=== PATIENT | male | born 1940 | race Caucasian/White ===

== ENCOUNTER 2017-04-21 11:51 | Observation (INO) | payer OTHER, MEDICARE ==
[~2017-04-21] VITALS: Ht 182.9 cm; Wt 91.2 kg
--- NOTE | ~2017-04-21 | HC ---
[facility] [place] [address] CONSULTATION Name: CORBIN NAVARRO Room #: 543-P HARRY Queen#: [id number] Admission: 04/21/17 Attend Phys: Dhiraj Rowan MD Discharge: 04/23/17 Date of : 41 Report #: [id number] THIS REPORT FOR: //name// CC: Dhiraj Padilla DICTATED BY: Diana NICOLE PATIENT LOCATION: Currently in room 543. REASON FOR CONSULT: Right lower extremity pain, right side. HISTORY OF PRESENT ILLNESS: The patient is a 76-year-old male who denies injury. He states that he had sudden onset of right lower leg pain that became worse as the day progressed. The patient had an ultrasound done in the ER, which was negative for DVT. No previous history of similar symptoms. No previous surgeries in the right lower extremity. He did relay that he had a low grade temp the night before. No other pertinent information was obtained. PERTINENT LABS: White blood cell count of 8.2 and normal, hemoglobin low at 13.8, platelet count of 195, uric acid 5, normal. PERTINENT IMAGING: X-rays ordered once the patient arrived to the floor, demonstrated small joint effusion and medial compartment joint space narrowing. ALLERGIES: PENICILLIN. MEDICATIONS: Please see MAR. PHYSICAL EXAMINATION: EXTREMITIES: Examination of the right lower extremity is as follows. No pain to palpation of the right ankle. Full range of motion to that right ankle. Negative Homans. SKIN: Dry and intact and warm to touch. No pain with full range of motion of the right hip. Tenderness to palpation of the right knee at joint line especially at the medial side, +1 effusion. Range of motion -5 to 90 degrees with pain. No patholaxity noted with assessment. IMPRESSION: Right knee effusion with degenerative joint changes. Right knee pain. PLAN: After the end of the patient's case, we will likely aspirate tomorrow. If the aspiration seems normal, we will inject with steroid. However, if aspiration seems suspicious for infection or gout, we will send to the lab. We will follow up with this patient on ____. [facility] [address] [place] [address] CONSULTATION Name: CORBIN NAVARRO Room #: 543-P [facility] Cher Queen#: [id number] Admission: 04/21/17 Attend Phys: Dhiraj Rowan MD Discharge: 04/23/17 Date of : 41 Report #: [id number] Thank you for your consult. <ELECTRONICALLY SIGNED> By: Zachary Freire MD 04/24/17 1510 2227 0056 Zachary Freire MD /nt
[~2017-04-21 11:51] MED LIST: ADULT LOW DOSE81 MG PO; CARVEDILOL25 MG PO; CIPRO250 M1 PO; COREG PO; COUMADIN 5 MG TA5 M1 PO; HYDROCODON-ACE1 EAC7 PO; JANTOVEN3 MG PO; JANTOVEN5 MG PO; LASIX 80 MG TAB80 M1 PO; LEVOTHROID100 MC1 PO; LISINOPRIL10 MG PO; LISINOPRIL20 MG PO; NORVASC2.5 MG PO; OMEPRAZOLE 20 M20 MG PO; OMEPRAZOLE20 MG PO; PACERONE 200 M200 M1 PO; PERCOCET 5-3251 EACH PO; POTASSIUM20 PO; SIMVASTATIN20 MG PO; SYNTHROID75 MCG PO
[2017-04-21 11:53] VITALS: BP 123/64
[2017-04-21] MEDS ORDERED: ALLOPURINOL 30300 M2 PO (12:24)
[2017-04-21 13:40] LABS: HEMATOCRIT 41.2 % (42.0-52.0); HEMOGLOBIN 13.8 gm/dL (14.0-18.0); MCH 33.7 pg (26.0-34.0); MCHC 33.5 g/dL (28.0-37.0); MCV 100.7 fL (80.0-100.0); PLATELET COUNT 195 thou/uL (150-400); RDW 16.8 % (10.5-14.5); WBC 8.2 thou/uL (4.0-11.0)
[2017-04-21 13:41] LABS: MANUAL DIFF YES
[2017-04-21 13:52] LABS: CALCIUM 8.6 mg/dL (8.5-10.1); POTASSIUM 4.4 mmol/L (3.5-5.1)
[2017-04-21 13:55] LABS: INR 2.8; PROTIME 29.5 Seconds (9.3-11.4)
[2017-04-21 14:05] LABS: ABSOLUTE NEUTROPHILS 7.3 thou/uL (1.4-8.2); TOTAL CELL COUNT 100
[2017-04-21 14:06] LABS: ANISOCYTOSIS 1+; MACROCYTES 1+; POLYCHROMASIA OCCASIONAL
[2017-04-21 14:26] VITALS: BP 118/53
[2017-04-21 20:42] VITALS: BP 104/57
[2017-04-22 03:40] VITALS: BP 103/52
[2017-04-22 06:01] LABS: HEMATOCRIT 39.3 % (42.0-52.0); MCH 33.7 pg (26.0-34.0); MCHC 33.1 g/dL (28.0-37.0); MCV 101.7 fL (80.0-100.0); RBC 3.86 mil/uL (4.50-6.00); RDW 16.3 % (10.5-14.5); WBC 7.7 thou/uL (4.0-11.0)
[2017-04-22 06:31] LABS: INR 3.3; PROTIME 34.1 Seconds (9.3-11.4)
[2017-04-22 06:33] LABS: ALBUMIN 2.8 g/dL (3.4-5.0); CALCIUM 8.5 mg/dL (8.5-10.1); CREATININE 1.1 mg/dL (0.7-1.3); POTASSIUM 4.5 mmol/L (3.5-5.1); TOTAL BILIRUBIN 0.8 mg/dL (<0.1-1.0)
[2017-04-22 08:05] VITALS: BP 112/53
[2017-04-22 08:22] LABS: CLARITY CLOUDY; COLOR YELLOW; TOTAL VOLUME 20 mL
[2017-04-22 08:42] LABS: BF NUCLEATED CELLS 19125; BF RBC 829
[2017-04-22 08:43] LABS: MANUAL DIFF YES
[2017-04-22 11:42] LABS: BF MACROPHAGE 2; BF NEUTROPHILS 96
[2017-04-22 14:55] VITALS: BP 101/50
[2017-04-22 20:10] VITALS: BP 127/51
[2017-04-22 20:38] LABS: BF COMMENTS 0
[2017-04-23 04:10] VITALS: BP 108/56
[2017-04-23 09:06] VITALS: BP 116/57
[2017-04-23] MEDS ORDERED: TRAMADOL 50 MG50 MG PO (11:45)
[2017-04-23 12:10] VITALS: BP 150/68
== END 2017-04-23 13:32 | disposition home or self-care (01) ==
LOC: ER 11:51 → EROBS 13:24 → 5S 13:58
PROVIDERS: Emergency Medicine; Internal Medicine; Orthopaedic Surgery
DX: M79.604 Pain in right leg (principal); I11.0 Hypertensive heart disease with heart failure; I50.9 Heart failure, unspecified; M10.9 Gout, unspecified; K21.9 Gastro-esophageal reflux disease without esophagitis; Z95.0 Presence of cardiac pacemaker; Z95.810 Presence of automatic (implantable) cardiac defibrillator; Z79.82 Long term (current) use of aspirin; Z79.01 Long term (current) use of anticoagulants; Z79.899 Other long term (current) drug therapy; Z88.0 Allergy status to penicillin; I42.9 Cardiomyopathy, unspecified; I48.91 Unspecified atrial fibrillation; Z87.891 Personal history of nicotine dependence; M72.2 Plantar fascial fibromatosis

== ENCOUNTER 2017-05-04 15:49 | Inpatient (IN) | payer OTHER, MEDICARE ==
[~2017-05-04] VITALS: Ht 185.4 cm; Wt 87.8 kg
--- NOTE | ~2017-05-04 | O ---
[facility] [address] [place] [address] OPERATIVE REPORT Name: CORBIN NAVARRO Room #: 537-P [facility] IN M.R.#: [id number] Admission: 05/04/17 Attend Phys: Roderick Redd MD Discharge: Date of : 41 Report #: [id number] THIS REPORT FOR: //name// CC: Roderick Padilla DATE OF SERVICE: 05/06/2017 PREOPERATIVE DIAGNOSIS: Contusion of right leg with hematoma and overlying skin necrosis. POSTOPERATIVE DIAGNOSIS: Contusion of right leg with hematoma and overlying skin necrosis with 6 cm x 9 cm surface wound, 3 cm deep with necrosis of skin and subcutaneous tissue and a large deep subcutaneous hematoma. PROCEDURE PERFORMED: Exam under anesthesia, incision and drainage and evacuation of large right lateral calf hematoma with excisional debridement of necrotic skin and subcutaneous tissue measuring 6 cm x 9 cm x 3 cm deep. HOME SECURITY ALARM INSTALLER: Israel Reynoso M.D. ANESTHESIA: IV sedation, local lidocaine 1% with epinephrine local injection, local Marcaine 0.5% with epinephrine local injection. INDICATION: The patient is a 76-year-old gentleman, who approximately 9 to 10 days ago sustained a contusion to his right leg with development of a hematoma. He was treated in the Emergency Room and released and returned pain in the leg. I did examine for the first time yesterday and he had a raised, tender area of the right lateral calf, which clinically was hematoma under pressure with some overlying skin necrosis. We attempted to get him to surgery yesterday, were unable to due to unavailability in the OR, but he was taken to surgery at this morning for an incision and drainage and evacuation of the hematoma, excision of necrotic skin and subcutaneous tissue. PROCEDURE IN DETAIL: With the patient lying supine with IV sedation, right lower leg was sterilely prepared and draped. There was an area of dark discoloration and necrosis of the skin with blistering in the right lateral calf. It was locally infiltrated with 1% lidocaine with epinephrine. A 15 blade scalpel was used to make an incision at the edge of the necrotic skin circumferentially. Overall size of the wound on the skin was 6.9 cm. Using a sharp 15 blade scalpel, necrotic skin and subcutaneous tissue were excised. A curette was also used to excise necrotic adipose tissue. A large deep hematoma was encountered and this was incised and the hematoma, which was under some pressure was drained. A large amount of dark, old clotted blood and hematoma was evacuated and the wound was irrigated. Pressure of the hematoma was released. No attempt was made to remove all the hematoma, which tracked [address] [address] OPERATIVE REPORT Name: CORBIN NAVARRO Room #: 537-P [facility] IN ..#: [id number] Admission: 05/04/17 Attend Phys: Roderick Redd MD Discharge: Date of : 41 Report #: [id number] circumferentially around the wound several centimeters. Overall, the size of wound was 6.9 cm, which was debrided, 3 cm deep. Hemostasis was complete. There was some red skin bleeding, but no undue bleeding. Wound was packed with a sterile saline gauze and ABD pad and a Kerlix wrap. We will likely employ a wound VAC for this wound in the postoperative period. Note, the patient was given gentamicin and clindamycin intravenously as prophylaxis for his heart valve prior to surgery. By: 1122 2235 Israel Reynoso MD /nt
--- NOTE | ~2017-05-04 | HC ---
[facility] [place] [address] CONSULTATION Name: CORBIN NAVARRO Room #: 537-P [facility]..#: [id number] Admission: 05/04/17 Attend Phys: Roderick Redd MD Discharge: 05/08/17 Date of : 41 Report #: [id number] THIS REPORT FOR: //name// CC: Roderick Padilla DATE OF SERVICE: 05/07/2017 CHIEF COMPLAINT: Surgical wound following evacuation of hematoma of the right lower extremity. HISTORY OF PRESENT ILLNESS: This is a 76-year-old white male patient who was admitted after sustaining an injury to his right lower leg. He was getting out of his car when the wind blew the door closed. He is chronically anticoagulated for a mechanical mitral valve. He developed significant hematoma and some necrosis. He was seen in surgical consultation by Dr. Israel Reynoso who took him to the operating room yesterday and performed an excisional debridement of the area. I have been asked to see him with regard to ongoing wound care. PAST MEDICAL HISTORY: Positive for prosthetic mitral valve, previous cholecystectomy, history of coronary artery bypass graft surgery, previous cardiac arrest, severe cardiomyopathy, permanent atrial fibrillation, pulmonary fibrosis. SOCIAL HISTORY: The patient is a former smoker. He previously worked as a transport truck driver. He has never used recreational drugs. Denies alcohol use. REVIEW OF SYSTEMS: CONSTITUTIONAL: The patient denies fever or chills. HEENT: The patient denies earache, nasal drainage, sore throat. CARDIOVASCULAR: The patient denies chest pain or palpitations, diaphoresis. PULMONARY: The patient denies cough, shortness of breath. GASTROINTESTINAL: The patient denies nausea, abdominal pain. ORTHOPEDIC: The patient does note some pain and drainage from his right leg. Other systems in a 12-point review of systems are negative other than that mentioned in the history of present illness. ALLERGIES: To PENICILLINS. CURRENT MEDICATIONS: Include hydrocodone, tramadol, aspirin, Lasix, Synthroid, simvastatin, omeprazole, lisinopril, amlodipine, carvedilol, Coumadin, allopurinol. PHYSICAL EXAMINATION: VITAL SIGNS: At this time include temperature 97.9, pulse 60, respiration of 18, blood pressure 105/61. [address] [address] CONSULTATION Name: CORBIN NAVARRO Room #: 537-P [facility] IN [facility]#: [id number] Admission: 05/04/17 Attend Phys: Roderick Redd MD Discharge: 05/08/17 Date of : 41 Report #: [id number] GENERAL: This is a chronically ill-appearing male patient appears to be in no distress. HEAD: Normocephalic. NECK: Supple. LUNGS: Clear. HEART: Regular. ABDOMEN: Soft. Bowel sounds present. EXTREMITIES: Demonstrate easily palpable distal pulses. He has 1-2+ edema of the right lower extremity. He has a large surgical wound involving the right lateral lower extremity. Please see the wound care nurse documentation for exact measurements and depth. The base has some hematoma and some granulation tissue. There is still some active oozing, although it is easily controllable with direct pressure. CLINICAL IMPRESSION: 1. Surgical wound to the right lower extremity following evacuation and debridement of a large hematoma. 2. Anticoagulation due to prosthetic mitral valve. 3. Cardiomyopathy. RECOMMENDATION: At this point in time, we recommend saline moist gauze dressings to be changed daily. We will place some Gelfoam on the wound today due to the oozing and then resume with the saline moist gauze dressings followed by Kerlix gauze and an Carlos Manuel wrap to help with compression. At this point in time, I think I would hold off on a wound VAC based on the continued oozing as well as anticoagulation as well as I would be concerned for some impairment of his mobility with this. All questions have been answered. I appreciate being asked to see the patient in consultation. <ELECTRONICALLY SIGNED> By: Kip Beauchamp MD 05/08/17 1804 1128 1607 Kip Beauchamp MD /nt
--- NOTE | ~2017-05-04 | HC ---
[facility] [place] [address] CONSULTATION Name: CORBIN NAVARRO Room #: 537-P [facility] IN ..#: [id number] Admission: 05/04/17 Attend Phys: Roderick Redd MD Discharge: Date of : 41 Report #: [id number] THIS REPORT FOR: //name// CC: Roderick Padilla DATE OF SERVICE: 05/05/2017 WOUND CARE CONSULTATION REPORT DATE OF CONSULTATION: 05/05/2017. REASON FOR CONSULTATION: Contusion of right leg with hematoma. HISTORY OF PRESENT ILLNESS: The patient is a very pleasant 76-year-old gentleman with severe cardiac disease including coronary artery disease, congestive heart failure and with a mechanical mitral valve and an implanted ICD, who around 9 days ago suffered trauma to his right leg when the wind blew the car door into his leg causing him a contusion and a hematoma. He was seen in the emergency department, treated and released with elevation and rest. Of note, the patient was anticoagulated at that time with his INR of 4.4. The patient returned to the emergency department when he had more severe pain of the leg and apparent large hematoma not allowing him to ambulate. The patient was admitted to the hospital with an INR of 2.2. Wound care is consulted for wound management. PAST MEDICAL HISTORY: 1. Coronary artery disease. 2. Congestive heart failure. 3. Mitral valve disease. 4. History of cardiac arrest. 5. History of mitral valve replacement in May 1996. 6. History of constrictive pericarditis. 7. Acid reflux. 8. Severe cardiomyopathy. 9. Atrial fibrillation. 10. Ejection fraction 20% to 25%. SOCIAL HISTORY: The patient does not smoke now or drink. PAST SURGICAL HISTORY: Mitral valve replacement, coronary artery bypass grafting in May 1996, cholecystectomy in 1996, and placement of an ICD. ALLERGIES: PENICILLIN. HOME MEDICATIONS: Include hydrocodone, tramadol, aspirin, and furosemide. [facility] [address] [place] [address] CONSULTATION Name: CORBIN NAVARRO Room #: 537-P [facility] IN [facility]#: [id number] Admission: 05/04/17 Attend Phys: Roderick Redd MD Discharge: Date of : 41 Report #: [id number] patient is on Coumadin daily, simvastatin, omeprazole, lisinopril 10 mg a day, amlodipine, carvedilol 25 mg a day, Coumadin 5 mg a day and allopurinol. PHYSICAL EXAMINATION: GENERAL: An elderly, somewhat chronically ill-appearing gentleman who is pleasant and conversant. VITAL SIGNS: Stable. LUNGS: Respirations are unlabored. Chest is clear. ABDOMEN: Soft. EXTREMITIES: Bruising of his right lower leg including the calf and the foot. In the right lateral calf, there is a 6 x 4.5 cm raised blistered area, and when the skin over the blister is unroofed, there is underlying necrotic skin. This is consistent with contusion with hematoma and pressure necrosis. The patient has good sensation in the foot. Mobile toes. Palpable dorsalis pedis pulse. ASSESSMENT: Contusion with hematoma of the right leg in a patient who is anticoagulated, currently INR of 2.4, and PT of 24.8. Due to pressure necrosis of the hematoma in his right calf, he would benefit from surgical decompression of this with removal of the necrotic skin and subcutaneous tissue and release of the hematoma to relieve the pressure. There is no evidence of compartment syndrome. It is a localized process. Cellulitis is minimal. The patient must remain anticoagulated. PLAN: We will prepare the patient for surgery with surgical excision of necrotic skin and subcutaneous tissue, release of the hematoma. I feel this can be done with the patient anticoagulated since he must remain anticoagulated due to his heart valve. Operating rooms at [facility] due to cardiac surgery are occupied the entire day, and although we wish to get the surgery done today, I feel the situation is stable, and it will be unsafe to take this patient with his severe cardiac disease to the operating room later in the evening. Therefore, we will plan for surgery early in the day on 05/06/2017. We will order topical morphine, Silvadene compound, and plan for surgery tomorrow. By: 1730 0120 Israel Reynoso MD /nt
--- NOTE | ~2017-05-04 | S ---
[facility] [place] [address] SURGICAL PATH RPT PROCEDURE Name: ADAN NAVARRO Room #: 537-P DIS IN M.R.#: [id number] Admission: 05/04/17 Date of : 41 Discharge: 05/08/17 Report #: [id number] Path Case #: [id number] PATHOLOGY REPORT COLLECTION DATE: 05/06/2017 RECEIVED DATE: 05/07/2017 SUBMITTING PHYS: Dr. Israel Reynoso OTHER PHYS: Dr. Geovanni Redd SPECIMEN(S) RECEIVED: A.Necrotic subcutaneous tissue right leg * * * * * * * * * * * * FINAL DIAGNOSIS: Necrotic subcutaneous tissue right leg, debridement: - Fresh hemorrhage within subcutaneous tissue, consistent with hematoma. - Fibrinoid necrosis involving subcutaneous tissue. - Overlying squamous epithelium showing reactive changes. (IUV:mgr; d/t: 05/08/17) PATHOLOGIST: Chel Rodriguez M.D. REPORT ELECTRONICALLY SIGNED BY: Chel Rodriguez M.D. DATE/TIME: 05/08/2017 17:27 * * * * * * * * * * * * GROSS PATHOLOGY: The specimen is received in formalin labeled "Adan Navarro necrotic subcutaneous tissue right leg". Received is a moderate amount of blood coagulum admixed with dusky vitale-lr brown, necrotic-appearing soft tissue admixed with possible skin measuring 8.0 x 4.8 x 2.2 cm in aggregate dimensions. The specimen is submitted representatively in cassette A1. (CAA; 05/07/2017) CLINICAL HISTORY: Hematoma right leg INITIAL CPT CODE(S): A; 42306 Professional services performed by [facility] at [facility] [address], [place] [address] [facility] [address] [address] SURGICAL PATH RPT PROCEDURE Name: AADN NAVARRO Room #: 537-P DIS IN M.R.#: [id number] Admission: 05/04/17 Date of : 41 Discharge: 05/08/17 Report #: [id number] Path Case #: [id number] Technical services performed by [facility] at [address] [place] [address], [place] [address]. [facility] [address] [place] [address] PHONE: [phone] DIRECTOR: Markell Viera M.D. * * * END OF REPORT * * *
[~2017-05-04 15:49] MED LIST changes: +ALLOPURINOL 30300 M2 PO; +NORCO 5-325 TA1 EACH PO; +TRAMADOL 50 MG50 MG PO
[2017-05-04 15:54] VITALS: BP 101/59
[2017-05-04 17:07] LABS: HEMATOCRIT 41.9 % (42.0-52.0); HEMOGLOBIN 13.8 gm/dL (14.0-18.0); MCH 33.4 pg (26.0-34.0); MCV 101.4 fL (80.0-100.0); PLATELET COUNT 267 thou/uL (150-400); RBC 4.14 mil/uL (4.50-6.00); RDW 16.4 % (10.5-14.5); WBC 13.6 thou/uL (4.0-11.0)
[2017-05-04 17:10] LABS: MANUAL DIFF YES
[2017-05-04 17:18] LABS: CALCIUM 8.7 mg/dL (8.5-10.1); CREATININE 1.4 mg/dL (0.7-1.3); INR 2.2; POTASSIUM 5.2 mmol/L (3.5-5.1); PROTIME 22.9 Seconds (9.3-11.4)
[2017-05-04 17:23] LABS: ALBUMIN 3.4 g/dL (3.4-5.0); TOTAL BILIRUBIN 0.7 mg/dL (<0.1-1.0); TOTAL PROTEIN 6.6 g/dL (6.4-8.2)
[2017-05-04 17:29] LABS: ABSOLUTE NEUTROPHILS 11.2 thou/uL (1.4-8.2); ANISOCYTOSIS 1+; TOTAL CELL COUNT 100
[2017-05-04 18:58] VITALS: BP 118/69
[2017-05-04 19:31] VITALS: BP 97/46
[2017-05-04 23:34] VITALS: BP 109/63
[2017-05-05] MEDS ORDERED: METAMUCIL1 EAC1 PO (00:18)
[2017-05-05 03:54] LABS: CALCIUM 8.1 mg/dL (8.5-10.1); CREATININE 1.1 mg/dL (0.7-1.3); POTASSIUM 4.6 mmol/L (3.5-5.1)
[2017-05-05 04:02] VITALS: BP 111/58
[2017-05-05 04:11] LABS: HEMATOCRIT 36.8 % (42.0-52.0); HEMOGLOBIN 12.3 gm/dL (14.0-18.0); MCHC 33.4 g/dL (28.0-37.0); MCV 101.8 fL (80.0-100.0); RBC 3.62 mil/uL (4.50-6.00); RDW 16.7 % (10.5-14.5); WBC 9.6 thou/uL (4.0-11.0)
[2017-05-05 07:27] VITALS: BP 112/70
[2017-05-05 09:50] LABS: INR 2.4; PROTIME 24.8 Seconds (9.3-11.4)
[2017-05-05 15:12] VITALS: BP 117/51
[2017-05-05 19:43] VITALS: BP 93/54
[2017-05-06] VITALS (9 sets, daily range): BP systolic 93–123; BP diastolic 49–56
[2017-05-06 06:23] LABS: HEMATOCRIT 38.1 % (42.0-52.0); HEMOGLOBIN 12.5 gm/dL (14.0-18.0); MCH 34.1 pg (26.0-34.0); MCHC 32.9 g/dL (28.0-37.0); MCV 103.6 fL (80.0-100.0); RBC 3.68 mil/uL (4.50-6.00); RDW 16.5 % (10.5-14.5); WBC 9.8 thou/uL (4.0-11.0)
[2017-05-06 06:33] LABS: CALCIUM 8.4 mg/dL (8.5-10.1); CREATININE 0.9 mg/dL (0.7-1.3); POTASSIUM 5.1 mmol/L (3.5-5.1)
[2017-05-06 06:42] LABS: INR 2.4; PROTIME 24.9 Seconds (9.3-11.4)
[2017-05-07 00:30] VITALS: BP 104/59
[2017-05-07 00:33] VITALS: BP 112/56
[2017-05-07 04:09] LABS: INR 2.4; PROTIME 25.3 Seconds (9.3-11.4)
[2017-05-07 04:19] LABS: HEMATOCRIT 38.8 % (42.0-52.0); HEMOGLOBIN 13.2 gm/dL (14.0-18.0); MCH 34.5 pg (26.0-34.0); MCV 101.6 fL (80.0-100.0); RBC 3.82 mil/uL (4.50-6.00); RDW 16.8 % (10.5-14.5)
[2017-05-07 05:34] LABS: CALCIUM 8.5 mg/dL (8.5-10.1); CREATININE 0.9 mg/dL (0.7-1.3); POTASSIUM 5.4 mmol/L (3.5-5.1)
[2017-05-07 07:25] VITALS: BP 105/61
[2017-05-07 11:51] LABS: URINE BILIRUBIN NEGATIVE (Negative); URINE BLOOD NEGATIVE (Negative); URINE COLOR YELLOW; URINE GLUCOSE-RANDOM* NEGATIVE (Negative); URINE KETONES NEGATIVE (Negative); URINE NITRITE NEGATIVE (Negative); URINE PROTEIN (DIPSTICK) TRACE (Negative)
[2017-05-07 15:30] VITALS: BP 104/51
[2017-05-07 20:00] VITALS: BP 121/56
[2017-05-08 03:49] VITALS: BP 111/57
[2017-05-08 04:06] LABS: HEMATOCRIT 38.6 % (42.0-52.0); MCH 34.4 pg (26.0-34.0); MCHC 33.7 g/dL (28.0-37.0); MCV 101.9 fL (80.0-100.0); RBC 3.79 mil/uL (4.50-6.00); RDW 16.5 % (10.5-14.5); WBC 7.9 thou/uL (4.0-11.0)
[2017-05-08 04:10] LABS: CALCIUM 8.7 mg/dL (8.5-10.1); CREATININE 0.9 mg/dL (0.7-1.3); POTASSIUM 5.3 mmol/L (3.5-5.1)
[2017-05-08 04:15] LABS: INR 2.4; PROTIME 24.9 Seconds (9.3-11.4)
[2017-05-08 07:40] VITALS: BP 111/59
[2017-05-08] MEDS ORDERED: COUMADIN 2.5MG2.5 M1 PO (14:22)
[2017-05-08] MEDS ORDERED: LASIX 40 MG TAB40 M2 PO (14:22)
[2017-05-08 14:57] VITALS: BP 111/59
[2017-05-08] MEDS ORDERED: PERCOCET PO (16:25)
[2017-05-08 19:37] VITALS: BP 111/59
== END 2017-05-08 16:10 | disposition home health service (06) | DRG 570 ==
LOC: ER 15:49 → EROBS 17:37 → 5S 17:37
PROVIDERS: Emergency Medicine; Hospitalist
PROC: 0JBN0ZZ Excision of Right Lower Leg Subcutaneous Tissue and Fascia, Open Approach (ICD-10-PCS; principal; 2017-05-06)
PROC: 0JCN0ZZ Extirpation of Matter from Right Lower Leg Subcutaneous Tissue and Fascia, Open Approach (ICD-10-PCS; principal; 2017-05-06)
DX: S80.11XA Contusion of right lower leg, initial encounter (principal); N17.0 Acute kidney failure with tubular necrosis; I50.20 Unspecified systolic (congestive) heart failure; I42.9 Cardiomyopathy, unspecified; K21.9 Gastro-esophageal reflux disease without esophagitis; Z96.89 Presence of other specified functional implants; E03.9 Hypothyroidism, unspecified; I11.0 Hypertensive heart disease with heart failure; I48.2 Chronic atrial fibrillation; I05.9 Rheumatic mitral valve disease, unspecified; I25.10 Atherosclerotic heart disease of native coronary artery without angina pectoris; Z95.2 Presence of prosthetic heart valve; Z79.82 Long term (current) use of aspirin; Z79.899 Other long term (current) drug therapy; Z79.01 Long term (current) use of anticoagulants; Z88.0 Allergy status to penicillin; Z86.74 Personal history of sudden cardiac arrest; Z87.891 Personal history of nicotine dependence; Z95.1 Presence of aortocoronary bypass graft; Z90.49 Acquired absence of other specified parts of digestive tract; Z95.810 Presence of automatic (implantable) cardiac defibrillator; X58.XXXA Exposure to other specified factors, initial encounter; Y93.89 Activity, other specified; Y92.89 Other specified places as the place of occurrence of the external cause; Y99.8 Other external cause status
CPT/HCPCS: 10086; 50010; 50101; 50386; 51636; 62110; 62850; 70005

== ENCOUNTER → 2017-05-15 | Outpatient (CLI) | payer OTHER, MEDICARE ==
[~2017-05-15] MED LIST changes: +COUMADIN 2.5MG2.5 M1 PO; +LASIX 40 MG TAB40 M2 PO; +METAMUCIL1 EAC1 PO; +PERCOCET PO
== END ==
LOC: HYPER 07:05
DX: S81.801A Unspecified open wound, right lower leg, initial encounter (principal); I10 Essential (primary) hypertension; I25.10 Atherosclerotic heart disease of native coronary artery without angina pectoris; I11.0 Hypertensive heart disease with heart failure; I50.9 Heart failure, unspecified; E03.9 Hypothyroidism, unspecified; I48.91 Unspecified atrial fibrillation; Z79.01 Long term (current) use of anticoagulants; Z87.891 Personal history of nicotine dependence; Z72.89 Other problems related to lifestyle; Z95.1 Presence of aortocoronary bypass graft; X58.XXXA Exposure to other specified factors, initial encounter; Y93.89 Activity, other specified; Y92.89 Other specified places as the place of occurrence of the external cause; Y99.8 Other external cause status

== ENCOUNTER 2017-05-18 11:57 | Inpatient (IN) | payer OTHER, MEDICARE ==
[~2017-05-18] VITALS: Ht 182.9 cm; Wt 88.0 kg
--- NOTE | ~2017-05-18 | HC ---
[facility] [place] [address] CONSULTATION Name: CORBIN NAVARRO Room #: 308-P [facility] IN ..#: [id number] Admission: 05/18/17 Attend Phys: Roderick Redd MD Discharge: Date of : 41 Report #: [id number] THIS REPORT FOR: //name// CC: Roderick Galarza Valerie Ramón Pattersonhens DATE OF SERVICE: 05/18/2017 INFECTIOUS DISEASE CONSULTATION DATE OF ADMISSION: 05/18/2017 DATE OF CONSULTATION: 05/18/2017 ATTENDING PHYSICIAN: Dr. Roderick Redd. REASON FOR EVALUATION: Right lower extremity skin and soft tissue infection/infected hematoma. HISTORY OF PRESENT ILLNESS: Chart reviewed, patient examined. This is a 76-year-old with history of injury sustained via a car door striking his leg. He was on anticoagulation, developed a large hematoma, did undergo additional debridement, had some wound care, had persistence with localizing signs of intensive pain, swelling, redness, underwent evacuation of the hematoma today after being evaluated by the wound care center referred directly, had a previous culture from the site with polymicrobial growth including enterobacter as well as enterococcus. Susceptibilities available for the former is resistant to regeneration cephalosporins as well as amoxicillin and clavulanic acid. He has been placed on levofloxacin. He is not overtly toxic. Denies systemic illness. ALLERGIES: PENICILLINS, he describes last exposure 50 years ago. CURRENT MEDICATIONS: Include hydrocodone, tramadol, oxycodone, warfarin, Levaquin. PAST MEDICAL HISTORY: Includes cardiomyopathy with history of congestive heart failure, has a pacemaker, atrial fibrillation on anticoagulation, has pulmonary fibrosis, mitral valve replacement. SOCIAL HISTORY: Nonsmoker, although he did smoke previously, no ethanol. FAMILY HISTORY: Noncontributory. REVIEW OF SYSTEMS: As above. [facility] [address] [place] [address] CONSULTATION Name: CORBIN NAVARRO Room #: 308-P [facility] IN [facility]#: [id number] Admission: 05/18/17 Attend Phys: Roderick Redd MD Discharge: Date of : 41 Report #: [id number] PHYSICAL EXAMINATION: GENERAL: Pleasant, alert, cooperative, appears somewhat chronically ill, mildly undernourished. VITAL SIGNS: Otherwise stable. HEENT: Unremarkable. LUNGS: Diminished breath sounds. HEART: Irregular. I do not appreciate a murmur. ABDOMEN: Soft, nontender. There is a compression dressing over the distal right lower extremity below the knee, the drain is in place. GENITOURINARY: Deferred. RECTAL: Deferred. LABORATORY DATA: Electrolytes: Sodium 138, potassium 4, chloride 104, bicarbonate is 27, BUN and creatinine of 23 and 0.9, AST of 30, ALT of 30. Albumin of 2.7, total protein of 5.9, prealbumin 11.1. CBC: White count 7.7, H and H 13.3 and 39.3, platelets of 230. ASSESSMENT AND PLAN: Infected hematoma with recent culture with polymicrobial growth; he is postoperative, certainly that was necessary. We will continue antimicrobial therapy due to the PENICILLIN allergies to avoid that group which would be perhaps amenable to monotherapy. We will add vancomycin and see how he does clinically. There was some discussion about possible desensitization, may be worthwhile going forward certainly with his anticoagulation being lifelong, antibiotics are often problematic. I discussed with the patient and his family. By: 1624 2114 Davon Marte MD /nt
[2017-05-18 13:52] LABS: HEMATOCRIT 39.6 % (42.0-52.0); HEMOGLOBIN 13.3 gm/dL (14.0-18.0); MCH 34.3 pg (26.0-34.0); MCHC 33.6 g/dL (28.0-37.0); RBC 3.88 mil/uL (4.50-6.00); RDW 16.7 % (10.5-14.5); WBC 7.7 thou/uL (4.0-11.0)
[2017-05-18 14:06] LABS: INR 1.7; PROTIME 17.9 Seconds (9.3-11.4)
[2017-05-18 14:08] LABS: ALBUMIN 2.7 g/dL (3.4-5.0); CALCIUM 8.9 mg/dL (8.5-10.1); CREATININE 0.9 mg/dL (0.7-1.3); TOTAL PROTEIN 5.9 g/dL (6.4-8.2)
[2017-05-18 14:20] LABS: POTASSIUM 4.8 mmol/L (3.5-5.1)
[2017-05-18 17:53] VITALS: BP 93/45
[2017-05-18 19:05] VITALS: BP 83/48
[2017-05-18 23:39] VITALS: BP 94/54
[2017-05-19 04:20] VITALS: BP 105/61
[2017-05-19 08:17] VITALS: BP 97/49
[2017-05-19 11:58] LABS: ABSOLUTE NEUTROPHILS 4.1 thou/uL (1.4-8.2); BASOPHILS 0.7 % (0.0-2.0); EOSINOPHILS 4.4 % (0.0-3.0); HEMATOCRIT 39.2 % (42.0-52.0); HEMOGLOBIN 13.2 gm/dL (14.0-18.0); LYMPHOCYTES 15.6 % (24.0-44.0); MANUAL DIFF NO; MCH 34.3 pg (26.0-34.0); MCHC 33.7 g/dL (28.0-37.0); MONOCYTES 11.5 % (1.0-8.0); PLATELET COUNT 228 thou/uL (150-400); POLYS 67.8 % (36.0-66.0); RBC 3.85 mil/uL (4.50-6.00); RDW 16.5 % (10.5-14.5)
[2017-05-19 12:07] LABS: INR 2.1; PROTIME 21.9 Seconds (9.3-11.4)
[2017-05-19 18:15] VITALS: BP 88/51
[2017-05-19 20:20] VITALS: BP 96/58
[2017-05-20 04:10] VITALS: BP 116/60
[2017-05-20 06:12] LABS: PROTIME 30.8 Seconds (9.3-11.4)
[2017-05-20 06:46] LABS: FOLIC ACID 12.8 ng/mL (8.6-58.9); TSH 1.167 uIU/mL (0.358-3.740)
[2017-05-20 08:00] VITALS: BP 111/60
[2017-05-20 16:00] VITALS: BP 110/73
[2017-05-20 20:00] VITALS: BP 92/56
[2017-05-21 03:11] LABS: INR 4.3; PROTIME 44.3 Seconds (9.3-11.4)
[2017-05-21 03:35] LABS: HEMATOCRIT 37.3 % (42.0-52.0); HEMOGLOBIN 12.5 gm/dL (14.0-18.0); MCH 34.5 pg (26.0-34.0); MCHC 33.4 g/dL (28.0-37.0); MCV 103.1 fL (80.0-100.0); RBC 3.62 mil/uL (4.50-6.00); RDW 16.7 % (10.5-14.5); WBC 5.3 thou/uL (4.0-11.0)
[2017-05-21 03:37] LABS: MAGNESIUM 1.6 mg/dL (1.8-2.4); POTASSIUM 4.4 mmol/L (3.5-5.1)
[2017-05-21 04:00] VITALS: BP 109/55
[2017-05-21 08:40] VITALS: BP 103/57
[2017-05-21 16:32] VITALS: BP 93/57
[2017-05-21 19:42] VITALS: BP 93/80
[2017-05-22 04:15] LABS: PROTIME 47.9 Seconds (9.3-11.4)
[2017-05-22 04:18] LABS: INR 4.6
[2017-05-22 04:25] VITALS: BP 99/53
[2017-05-22 08:26] VITALS: BP 104/54
[2017-05-22 15:20] VITALS: BP 95/56
[2017-05-22] MEDS ORDERED: LEVAQUIN 500 M500 M2 PO (16:41)
[2017-05-22] MEDS ORDERED: HYDROCODON-ACE1 EAC7 PO (17:02)
[2017-05-22 17:22] VITALS: BP 104/54
[2017-05-22 18:27] VITALS: BP 104/54
== END 2017-05-22 18:28 | disposition home or self-care (01) | DRG 602 ==
LOC: 3N 11:57
PROVIDERS: Emergency Medicine; Hospitalist; Internal Medicine Infectious Disease; Nurse Practitioner Family
DX: L03.115 Cellulitis of right lower limb (principal); E43 Unspecified severe protein-calorie malnutrition; I42.9 Cardiomyopathy, unspecified; I50.20 Unspecified systolic (congestive) heart failure; S80.11XA Contusion of right lower leg, initial encounter; Z96.89 Presence of other specified functional implants; E78.5 Hyperlipidemia, unspecified; E03.9 Hypothyroidism, unspecified; I11.0 Hypertensive heart disease with heart failure; I25.10 Atherosclerotic heart disease of native coronary artery without angina pectoris; K21.9 Gastro-esophageal reflux disease without esophagitis; I48.2 Chronic atrial fibrillation; Z87.891 Personal history of nicotine dependence; Z88.0 Allergy status to penicillin; Z79.01 Long term (current) use of anticoagulants; Z95.2 Presence of prosthetic heart valve; X58.XXXA Exposure to other specified factors, initial encounter; Y93.89 Activity, other specified; Y92.89 Other specified places as the place of occurrence of the external cause; Y99.8 Other external cause status; Z68.26 Body mass index [BMI] 26.0-26.9, adult; Z88.1 Allergy status to other antibiotic agents; Z79.82 Long term (current) use of aspirin; Z79.899 Other long term (current) drug therapy
CPT/HCPCS: 10795

== ENCOUNTER → 2017-05-18 | Outpatient (CLI) | payer OTHER, MEDICARE | LOC: HYPER 07:51 | DX: S81.801D Unspecified open wound, right lower leg, subsequent encounter (principal); I25.10 Atherosclerotic heart disease of native coronary artery without angina pectoris; I11.0 Hypertensive heart disease with heart failure; I50.9 Heart failure, unspecified; E03.9 Hypothyroidism, unspecified; I48.91 Unspecified atrial fibrillation; J84.10 Pulmonary fibrosis, unspecified; Z87.891 Personal history of nicotine dependence; Z72.89 Other problems related to lifestyle; Z95.1 Presence of aortocoronary bypass graft; Z79.01 Long term (current) use of anticoagulants; X58.XXXD Exposure to other specified factors, subsequent encounter ==

== ENCOUNTER → 2017-05-30 | Outpatient (CLI) | payer OTHER, MEDICARE ==
[~2017-05-30] MED LIST changes: +LEVAQUIN 500 M500 M2 PO; +MEDROL DOSPAK21 TA1 PO
== END ==
LOC: HYPER 07:00
DX: S81.801D Unspecified open wound, right lower leg, subsequent encounter (principal); I25.10 Atherosclerotic heart disease of native coronary artery without angina pectoris; I11.0 Hypertensive heart disease with heart failure; I50.9 Heart failure, unspecified; E03.9 Hypothyroidism, unspecified; I25.2 Old myocardial infarction; I48.91 Unspecified atrial fibrillation; Z86.711 Personal history of pulmonary embolism; Z87.891 Personal history of nicotine dependence; Z72.89 Other problems related to lifestyle; Z95.1 Presence of aortocoronary bypass graft; Z79.01 Long term (current) use of anticoagulants; X58.XXXD Exposure to other specified factors, subsequent encounter

== ENCOUNTER 2017-06-03 11:12 | Inpatient (IN) | payer OTHER, MEDICARE ==
[~2017-06-03] VITALS: Ht 182.9 cm; Wt 83.9 kg
--- NOTE | ~2017-06-03 | EKG ---
[address] [place] [address] ELECTROCARDIOGRAM REPORT Name: CORBIN NAVARRO Room #: 447-P ADM IN M.R.#: [id number] Admission: 06/03/17 Attend Phys: Juan Becerril DO Discharge: Date of : 41 Report #: [id number] THIS REPORT FOR: //name// [facility] ED Test Date: 2017-06-03 Test Time: 11:24:21 Pat Name: CORBIN NAVARRO Department: Room: [facility] Gender: M Supervisor [employer]: CALLY : 1940 Requested By: Jefferson Sims Order Number: [id number] MD: Uriel Nix Measurements Intervals [place] Rate: 60 P: 0 VT: 56 QRS: -89 QRSD: 146 T: 47 QT: 492 QTc: 492 Interpretive Statements Ventricular-paced complexes No further analysis attempted due to paced rhythm Baseline wander in lead(s) V3 Compared to ECG 05/03/2013 11:15:25 Ventricular premature complex(es) no longer present Electronically Signed On 06-04-2017 9:23:40 CDT by Uriel Nix [email or web address] <ELECTRONICALLY SIGNED> By: Uriel Nix MD, [facility] 06/04/17 0923 1124 1124 Uriel Nix MD, [facility] /EPI
[~2017-06-03 11:12] MED LIST changes: -MEDROL DOSPAK21 TA1 PO
[2017-06-03 11:40] VITALS: BP 114/54
[2017-06-03 11:45] LABS: HEMATOCRIT 36.7 % (42.0-52.0); HEMOGLOBIN 12.3 gm/dL (14.0-18.0); MANUAL DIFF YES; MCH 33.9 pg (26.0-34.0); MCHC 33.5 g/dL (28.0-37.0); MCV 101.4 fL (80.0-100.0); PLATELET COUNT 209 thou/uL (150-400); RBC 3.62 mil/uL (4.50-6.00); RDW 15.9 % (10.5-14.5); WBC 10.4 thou/uL (4.0-11.0)
[2017-06-03 11:53] LABS: ANION GAP 6 mmol/L (7-16); BUN 20 mg/dL (7-18); CALCIUM 8.2 mg/dL (8.5-10.1); CHLORIDE 104 mmol/L (98-107); CO2 27 mmol/L (21-32); GLUCOSE 102 mg/dL (74-106); SODIUM 137 mmol/L (136-145)
[2017-06-03 12:01] LABS: TROPONIN-I < 0.04 ng/mL (<0.04-0.07)
[2017-06-03 12:05] LABS: ABSOLUTE NEUTROPHILS 8.3 thou/uL (1.4-8.2); PLATELET ESTIMATE NORMAL; TOTAL CELL COUNT 100
[2017-06-03 12:16] LABS: APTT 44.3 Seconds (24.5-32.8); INR 2.8; PROTIME 28.9 Seconds (9.3-11.4)
[2017-06-03 12:46] LABS: URINE BILIRUBIN NEGATIVE (Negative); URINE BLOOD NEGATIVE (Negative); URINE COLOR YELLOW; URINE GLUCOSE-RANDOM* NEGATIVE (Negative); URINE KETONES NEGATIVE (Negative); URINE LEUKOCYTES-REFLEX 1+ (Negative); URINE PROTEIN (DIPSTICK) NEGATIVE (Negative)
[2017-06-03 12:55] LABS: CASTS None Seen /LPF (None Seen); CRYSTALS None Seen /LPF (None Seen); SQUAMOUS 0-3 Few /LPF (0-3); URINE RBC None Seen /HPF (0-2); URINE WBC-REFLEX 6-15 Few /HPF (0-5)
[2017-06-03 14:54] VITALS: BP 102/70
[2017-06-03 15:10] VITALS: BP 89/46
[2017-06-03 17:05] VITALS: BP 90/50
[2017-06-03 18:29] VITALS: BP 84/42
[2017-06-03 20:03] VITALS: BP 90/46
[2017-06-03 20:08] LABS: CLARITY CLOUDY; COLOR YELLOW; TOTAL VOLUME 50 mL
[2017-06-03 20:19] LABS: BF NUCLEATED CELLS 21561; BF RBC 4762
[2017-06-03 20:27] LABS: MANUAL DIFF YES
[2017-06-03 21:18] LABS: BF MACROPHAGE 5; BF NEUTROPHILS 92
[2017-06-04 03:45] VITALS: BP 111/56
[2017-06-04 05:03] LABS: HEMATOCRIT 33.7 % (42.0-52.0); HEMOGLOBIN 11.4 gm/dL (14.0-18.0); MCH 34.2 pg (26.0-34.0); MCHC 33.8 g/dL (28.0-37.0); MCV 101.2 fL (80.0-100.0); PLATELET COUNT 206 thou/uL (150-400); RBC 3.33 mil/uL (4.50-6.00); RDW 16.2 % (10.5-14.5)
[2017-06-04 05:07] LABS: MANUAL DIFF YES
[2017-06-04 05:08] LABS: PROTIME 30.9 Seconds (9.3-11.4)
[2017-06-04 05:17] LABS: CALCIUM 7.9 mg/dL (8.5-10.1); MAGNESIUM 1.7 mg/dL (1.8-2.4); POTASSIUM 4.2 mmol/L (3.5-5.1)
[2017-06-04 07:46] LABS: ABSOLUTE NEUTROPHILS 4.7 thou/uL (1.4-8.2); ANISOCYTOSIS 1+; ATYPICAL LYMPHS 1 %; METAMYELOCYTES 1 %; TOTAL CELL COUNT 100
[2017-06-04] MEDS ORDERED: MEDROL DOSPAK21 TA1 PO (09:29)
[2017-06-04 09:44] VITALS: BP 111/56
== END 2017-06-04 10:48 | disposition home or self-care (01) | DRG 554 ==
LOC: ER 11:12 → 4S 14:19 → EROBS 14:19 → 4S 14:50
PROVIDERS: Emergency Medicine; Internal Medicine Geriatric Medicine; Orthopaedic Surgery Sports Medicine
DX: M10.9 Gout, unspecified (principal); I42.9 Cardiomyopathy, unspecified; Z96.89 Presence of other specified functional implants; K21.9 Gastro-esophageal reflux disease without esophagitis; I48.2 Chronic atrial fibrillation; M25.469 Effusion, unspecified knee; E78.5 Hyperlipidemia, unspecified; Z86.74 Personal history of sudden cardiac arrest; Z95.1 Presence of aortocoronary bypass graft; Z79.01 Long term (current) use of anticoagulants; Z90.49 Acquired absence of other specified parts of digestive tract; Z88.0 Allergy status to penicillin; Z88.1 Allergy status to other antibiotic agents; Z87.891 Personal history of nicotine dependence; Z79.899 Other long term (current) drug therapy
CPT/HCPCS: 10195

== ENCOUNTER → 2017-06-13 | Outpatient (CLI) | payer OTHER, MEDICARE ==
[~2017-06-13] MED LIST changes: +MEDROL DOSPAK21 TA1 PO
== END ==
LOC: HYPER 07:06
DX: S81.801D Unspecified open wound, right lower leg, subsequent encounter (principal); I25.10 Atherosclerotic heart disease of native coronary artery without angina pectoris; I11.0 Hypertensive heart disease with heart failure; I50.9 Heart failure, unspecified; E03.9 Hypothyroidism, unspecified; I48.91 Unspecified atrial fibrillation; Z95.1 Presence of aortocoronary bypass graft; Z79.01 Long term (current) use of anticoagulants; Z87.891 Personal history of nicotine dependence; Z72.89 Other problems related to lifestyle; X58.XXXD Exposure to other specified factors, subsequent encounter

== ENCOUNTER → 2017-06-27 | Outpatient (CLI) | payer OTHER, MEDICARE | LOC: HYPER 07:12 | DX: S81.801D Unspecified open wound, right lower leg, subsequent encounter (principal); I10 Essential (primary) hypertension; I25.10 Atherosclerotic heart disease of native coronary artery without angina pectoris; I11.0 Hypertensive heart disease with heart failure; I50.9 Heart failure, unspecified; E03.9 Hypothyroidism, unspecified; Z95.1 Presence of aortocoronary bypass graft; Z79.01 Long term (current) use of anticoagulants; Z87.891 Personal history of nicotine dependence; Z72.89 Other problems related to lifestyle; X58.XXXD Exposure to other specified factors, subsequent encounter ==

== ENCOUNTER → 2017-07-11 | Outpatient (CLI) | payer OTHER, MEDICARE | LOC: HYPER 07:00 | DX: S81.801D Unspecified open wound, right lower leg, subsequent encounter (principal); I10 Essential (primary) hypertension; I25.10 Atherosclerotic heart disease of native coronary artery without angina pectoris; I11.0 Hypertensive heart disease with heart failure; I50.9 Heart failure, unspecified; E03.9 Hypothyroidism, unspecified; I48.91 Unspecified atrial fibrillation; Z95.1 Presence of aortocoronary bypass graft; Z87.891 Personal history of nicotine dependence; Z72.89 Other problems related to lifestyle; Z79.01 Long term (current) use of anticoagulants; V09.9XXD Pedestrian injured in unspecified transport accident, subsequent encounter ==

== ENCOUNTER 2017-07-27 07:59 | Observation (INO) | payer OTHER, MEDICARE ==
[~2017-07-27] VITALS: Ht 182.9 cm; Wt 89.4 kg
--- NOTE | ~2017-07-27 | O ---
[facility] [place] [address] OPERATIVE REPORT Name: CORBIN NAVARRO Room #: 418-P [facility]#: [id number] Admission: 07/27/17 Attend Phys: Kobe Casillas MD Discharge: Date of : 41 Report #: [id number] THIS REPORT FOR: //name// CC: Kobe Walsh DATE OF SERVICE: 07/28/2017 PREOPERATIVE DIAGNOSIS: Right knee joint effusion. POSTOPERATIVE DIAGNOSIS: Right knee joint effusion. PROCEDURE PERFORMED: Right knee joint aspiration. SURGEON: Jacquelin Garcia MD. ANESTHESIA: Local anesthesia. COMPLICATIONS: None. CONDITION: Stable. DISPOSITION: This was done at the bedside. INDICATIONS: The patient is a 77-year-old male with right knee joint effusion. He elects for aspiration. We discussed the risks, benefits, alternatives, complications, including infection as the primary risk. Informed consent was obtained. DESCRIPTION OF PROCEDURE: Under sterile conditions, approximately 2 mL of 1% lidocaine was injected subcutaneously at the superolateral aspect of the patella. After adequate anesthesia was obtained, an 18-gauge needle was inserted into the superolateral aspect of the knee joint and approximately 36 mL of yellow fluid with appropriate viscosity was obtained. This fluid was sent off for evaluation. He tolerated the procedure well. By: [facility] 1216 Jacquelin Garcia MD /nt
--- NOTE | ~2017-07-27 | HC ---
[facility] [place] [address] CONSULTATION Name: CORBIN NAVARRO [id number] Admission: 07/27/17 Attend Phys: Kobe Casillas MD Discharge: Date of : 41 Report #: [id number] THIS REPORT FOR: //name// CC: Kobe Walsh DATE OF SERVICE: 07/27/2017 CHIEF COMPLAINT: Traumatic wound to the right lower leg. HISTORY OF PRESENT ILLNESS: This is a 77-year-old white male patient who is admitted to the hospital with increasing pain and inability to walk involving his right posterior knee area. He was seen in [facility] today with followup for traumatic wound to his right leg that has been mostly improving. The patient has been doing well with a wound on his right leg. We have been using a topical Puracol with silver dressing and it has been improving and filling and epithelializing well. PAST MEDICAL HISTORY: Prior history of gout of the right knee. He is anticoagulated on Coumadin. History of hematoma to the right leg with subsequent surgical debridement. History of plantar fasciitis. ALLERGIES: ADHESIVES, VANCOMYCIN, PENICILLINS. FAMILY HISTORY: Noncontributory. MEDICATIONS: Aspirin, tramadol, hydrocodone, simvastatin, levothyroxine, omeprazole, carvedilol, lisinopril, allopurinol, furosemide, hydrocodone. SOCIAL HISTORY: Negative for current alcohol or tobacco use. He is , accompanied by his . REVIEW OF SYSTEMS: CONSTITUTIONAL: The patient denies fever, chills or weight loss. NEUROLOGICAL: The patient denies focal weakness, numbness, tingling. EYES: The patient denies visual changes, redness or drainage. ENT: The patient denies earache, nasal drainage, sore throat. CARDIOVASCULAR: The patient denies chest pain or palpitations, diaphoresis. PULMONARY: The patient denies cough, shortness of breath. GASTROINTESTINAL: The patient denies nausea, diarrhea or abdominal pain. ORTHOPEDIC: The patient does complain of severe pain in his right knee with inability to walk. He also notes the chronic wound on his right leg that he thinks is improving. Other systems in the 12-point review of systems negative. [address] [address] CONSULTATION Name: CORBIN NAVARRO Room #: 418-P [facility] Bernice#: [id number] Admission: 07/27/17 Attend Phys: Kobe Casillas MD Discharge: Date of : 41 Report #: [id number] PHYSICAL EXAMINATION: VITAL SIGNS: At this time include respiratory rate of 18, pulse 109, blood pressure 116/57, temperature 97.0. GENERAL: This is a chronically ill-appearing male patient who appears to be in no distress. HEENT: Head normocephalic. Nose and throat clear. NECK: Supple. LUNGS: Clear. HEART: Regular rhythm. ABDOMEN: Soft. Bowel sounds present. EXTREMITIES: Examination of the lower extremities demonstrates some tenderness in the popliteal fossa on the right side. There is no erythema. There is a little bit of swelling. There is a small effusion of the knee, but it is nontender anteriorly. The knee is stable. He has a chronic wound involving his right lower leg that is much improved since I last saw it. It is clean, healthy, granulating and relatively superficial. CLINICAL IMPRESSION: 1. Right knee pain with inability to walk. 2. Anticoagulation, on Coumadin. 3. Traumatic wound to the right leg, status post evacuation and debridement of hematoma, now much improved. RECOMMENDATIONS: At this point in time, we will continue with a topical Puracol Ag dressing, to be changed Sunday, Sunday and Sunday. The patient is admitted to the medical service. We would consider orthopedic evaluation for the knee as he has been treated for gout in the past, although this clinically may appear to be somewhat different than the previous presentation. I appreciate being asked to see him in consultation. <ELECTRONICALLY SIGNED> By: Kip Beauchamp MD 07/28/17 1311 1515 2208 Kip Beauchamp MD /nt
--- NOTE | ~2017-07-27 | HC ---
[facility] [place] [address] CONSULTATION Name: CORBIN NAVARRO Room #: 418-P [facility] [id number] Admission: 07/27/17 Attend Phys: Kobe Casillas MD Discharge: Date of : 41 Report #: [id number] THIS REPORT FOR: //name// CC: Kobe Walsh DATE OF SERVICE: 07/28/2017 DATE OF CONSULTATION: 07/28/2017 REASON FOR CONSULTATION: Left knee pain. HISTORY OF PRESENT ILLNESS: The patient is a 77-year-old male with a history of multiple recurrent gout episodes in his right knee, who reports acute onset of right knee pain approximately 3 days ago without any specific injury. He denies any fevers or chills, and reports he has pain and swelling in the right knee. He has pain with ambulation. He has been initiated on steroids for this, but has had no other specific treatment for this. REVIEW OF SYSTEMS: INTEGUMENTARY: Reports almost healed right lower extremity wound. NEUROLOGIC: Denies numbness or tingling to his extremities. MUSCULOSKELETAL: Denies any other joint pain. PAST MEDICAL HISTORY: Significant for hypertension, congestive heart failure, coronary artery disease, diagnosis of gout previously in his right knee and has had a gouty episode in his left elbow. He has had a cardiac valve replaced. ALLERGIES: INCLUDE ADHESIVE, VANCOMYCIN, AND PENICILLINS. PAST SURGICAL HISTORY: He has had an appendectomy and valve replacement. SOCIAL HISTORY: He normally does not use any ambulatory aids. Lives at home with his . Denies smoking or drinking alcohol. MEDICATIONS: Reported home medications include lisinopril, furosemide, levothyroxine, simvastatin, warfarin, omeprazole, carvedilol, and allopurinol. LABORATORY STUDIES: Done on 07/28/2017 show white blood cell count 5, hemoglobin 11.9, hematocrit 36.2, platelet count 232. INR is 3.5. BMP is grossly normal. Serum uric acid done on 07/27/2017, is within normal range at 4.8. PHYSICAL EXAMINATION: GENERAL: He is alert and oriented, interacts appropriately. I believe his [facility] [address] [place] [address] CONSULTATION Name: CORBIN NAVARRO Room #: 418-P [facility] [id number] Admission: 07/27/17 Attend Phys: Kobe Casillas MD Discharge: Date of : 41 Report #: [id number] daughter is at his bedside. He is a well-developed, well-nourished male, in no acute distress. He interacts appropriately and has a normal affect. He is a very pleasant gentleman. VITAL SIGNS: Most recent vital signs show temperature of 36.3, pulse rate is 59, respiration rate is 18, blood pressure 119/64. EXTREMITIES: Examination of his right lower extremity, his lower leg is dressed. I did not remove the dressing due to the wound care. He reports sensation is intact to light touch throughout. He has brisk capillary refill. EHL, FHL, dorsiflexion and plantar flexion are intact. Specific examination of his right knee shows a significant knee joint effusion with no erythema. There is diffuse tenderness. He is able to perform a straight leg raise. RADIOGRAPHS: AP and lateral of the right knee show no acute abnormality. It shows a mild diffuse arthrosis. IMPRESSION AND PLAN: Right knee joint effusion, most likely a gouty flare. I discussed the diagnosis as well as treatment options, and at this point, I feel aspiration would provide both pain relief as well as a diagnostic to rule out infection. They elected for this and I was able to obtain approximately 36 mL of yellowish fluid with appropriate viscosity. He tolerated this well. I will await for the reading of the fluid analysis, and as long as suspicion for infection is low, he may be discharged home when approved by the wound care and other medical doctor. By: [id number] Jacquelin Garcia MD /nt
[2017-07-27 13:45] VITALS: BP 116/57
[2017-07-27] MEDS ORDERED: COUMADIN 5 MG TA5 M1 PO (14:02)
[2017-07-27 15:17] LABS: HEMATOCRIT 37.8 % (42.0-52.0); HEMOGLOBIN 12.5 gm/dL (14.0-18.0); MCH 33.5 pg (26.0-34.0); MCHC 33.1 g/dL (28.0-37.0); MCV 101.2 fL (80.0-100.0); RBC 3.73 mil/uL (4.50-6.00); RDW 15.9 % (10.5-14.5); WBC 7.4 thou/uL (4.0-11.0)
[2017-07-27 15:31] LABS: ALBUMIN 3.2 g/dL (3.4-5.0); CALCIUM 8.9 mg/dL (8.5-10.1); POTASSIUM 4.3 mmol/L (3.5-5.1); TOTAL BILIRUBIN 0.8 mg/dL (<0.1-1.0); TOTAL PROTEIN 6.2 g/dL (6.4-8.2)
[2017-07-27 15:32] LABS: INR 3.5
[2017-07-27 16:17] VITALS: BP 134/57
[2017-07-27 19:33] VITALS: BP 102/50
[2017-07-28 03:55] VITALS: BP 112/56
[2017-07-28 03:58] LABS: INR 3.5; PROTIME 35.5 Seconds (9.3-11.4)
[2017-07-28 04:01] LABS: CALCIUM 8.8 mg/dL (8.5-10.1); CREATININE 0.8 mg/dL (0.7-1.3); POTASSIUM 4.2 mmol/L (3.5-5.1)
[2017-07-28 04:34] LABS: HEMATOCRIT 36.2 % (42.0-52.0); HEMOGLOBIN 11.9 gm/dL (14.0-18.0); MCH 33.2 pg (26.0-34.0); MCHC 32.8 g/dL (28.0-37.0); MCV 101.2 fL (80.0-100.0); RBC 3.58 mil/uL (4.50-6.00); RDW 15.9 % (10.5-14.5)
[2017-07-28 08:12] VITALS: BP 119/64
[2017-07-28 11:09] LABS: CLARITY SLIGHTLY CLOUDY; COLOR YELLOW; TOTAL VOLUME 34 mL
[2017-07-28 11:16] LABS: BF NUCLEATED CELLS 3420; BF RBC 1460
[2017-07-28 11:17] LABS: BF CRYSTALS No Crystals seen
[2017-07-28 11:20] LABS: MANUAL DIFF YES
[2017-07-28 15:06] LABS: BODY FLUID GLUCOSE 151 mg/dL (())
[2017-07-28 15:37] VITALS: BP 115/50
[2017-07-28 20:00] VITALS: BP 103/50
[2017-07-29 04:41] VITALS: BP 107/51
[2017-07-29 06:06] LABS: HEMOGLOBIN 11.5 gm/dL (14.0-18.0); MCH 33.8 pg (26.0-34.0); MCHC 33.8 g/dL (28.0-37.0); MCV 100.2 fL (80.0-100.0); RBC 3.39 mil/uL (4.50-6.00); RDW 15.7 % (10.5-14.5); WBC 7.7 thou/uL (4.0-11.0)
[2017-07-29 06:17] LABS: INR 4.5; PROTIME 45.3 Seconds (9.3-11.4)
[2017-07-29 06:18] LABS: CALCIUM 8.7 mg/dL (8.5-10.1); CREATININE 0.8 mg/dL (0.7-1.3); POTASSIUM 4.2 mmol/L (3.5-5.1)
[2017-07-29 08:49] LABS: BF NEUTROPHILS 71
[2017-07-29] MEDS ORDERED: PREDNISONE 10 M10 MG PO (11:47)
[2017-07-29 12:23] VITALS: BP 107/51
[2017-07-29 12:44] VITALS: BP 107/51
[2017-07-29 12:45] VITALS: BP 107/51
== END 2017-07-29 13:00 | disposition home or self-care (01) ==
LOC: HYPER 07:59 → 4E 12:43
PROVIDERS: Emergency Medicine; Hospitalist; Orthopaedic Surgery Hand Surgery
DX: M25.461 Effusion, right knee (principal); M25.561 Pain in right knee; I25.10 Atherosclerotic heart disease of native coronary artery without angina pectoris; E78.5 Hyperlipidemia, unspecified; I11.0 Hypertensive heart disease with heart failure; I50.20 Unspecified systolic (congestive) heart failure; E03.9 Hypothyroidism, unspecified; I25.2 Old myocardial infarction; K21.9 Gastro-esophageal reflux disease without esophagitis; Z95.1 Presence of aortocoronary bypass graft; Z79.899 Other long term (current) drug therapy; Z87.891 Personal history of nicotine dependence; M79.89 Other specified soft tissue disorders

== ENCOUNTER → 2017-08-13 | Outpatient (CLI) | payer OTHER, MEDICARE ==
[~2017-08-13] MED LIST changes: +PREDNISONE 10 M10 MG PO
== END ==
LOC: HYPER 06:42
DX: S81.801D Unspecified open wound, right lower leg, subsequent encounter (principal); I10 Essential (primary) hypertension; I25.10 Atherosclerotic heart disease of native coronary artery without angina pectoris; I11.0 Hypertensive heart disease with heart failure; I50.9 Heart failure, unspecified; I48.91 Unspecified atrial fibrillation; Z79.01 Long term (current) use of anticoagulants; Z95.1 Presence of aortocoronary bypass graft; Z87.891 Personal history of nicotine dependence; Z72.89 Other problems related to lifestyle; X58.XXXD Exposure to other specified factors, subsequent encounter

== ENCOUNTER → 2017-08-29 | Outpatient (CLI) | payer OTHER, MEDICARE | LOC: HYPER 07:05 | DX: S81.801D Unspecified open wound, right lower leg, subsequent encounter (principal); I25.10 Atherosclerotic heart disease of native coronary artery without angina pectoris; I11.0 Hypertensive heart disease with heart failure; I50.9 Heart failure, unspecified; Z79.01 Long term (current) use of anticoagulants; Z87.891 Personal history of nicotine dependence; Z72.89 Other problems related to lifestyle; E03.9 Hypothyroidism, unspecified; Z95.1 Presence of aortocoronary bypass graft; X58.XXXD Exposure to other specified factors, subsequent encounter ==

== ENCOUNTER → 2017-09-13 | Outpatient (CLI) | payer OTHER, MEDICARE | LOC: HYPER 07:02 | DX: S81.801D Unspecified open wound, right lower leg, subsequent encounter (principal); I10 Essential (primary) hypertension; I25.10 Atherosclerotic heart disease of native coronary artery without angina pectoris; I11.0 Hypertensive heart disease with heart failure; I50.9 Heart failure, unspecified; E03.9 Hypothyroidism, unspecified; I48.91 Unspecified atrial fibrillation; Z86.711 Personal history of pulmonary embolism; Z95.1 Presence of aortocoronary bypass graft; Z87.891 Personal history of nicotine dependence; Z72.89 Other problems related to lifestyle; Z79.01 Long term (current) use of anticoagulants ==

== ENCOUNTER → 2017-09-20 | Outpatient (CLI) | payer OTHER, MEDICARE | LOC: HYPER 06:58 | DX: S81.801D Unspecified open wound, right lower leg, subsequent encounter (principal); I10 Essential (primary) hypertension; I25.10 Atherosclerotic heart disease of native coronary artery without angina pectoris; I11.0 Hypertensive heart disease with heart failure; I50.9 Heart failure, unspecified; E03.9 Hypothyroidism, unspecified; I48.91 Unspecified atrial fibrillation; Z79.01 Long term (current) use of anticoagulants; Z87.891 Personal history of nicotine dependence; Z72.89 Other problems related to lifestyle; X58.XXXD Exposure to other specified factors, subsequent encounter ==

== ENCOUNTER → 2017-09-26 | Outpatient (CLI) | payer OTHER, MEDICARE | LOC: HYPER 07:12 | DX: S81.801D Unspecified open wound, right lower leg, subsequent encounter (principal); Z79.01 Long term (current) use of anticoagulants; I10 Essential (primary) hypertension; I25.10 Atherosclerotic heart disease of native coronary artery without angina pectoris; I11.0 Hypertensive heart disease with heart failure; I50.9 Heart failure, unspecified; I48.91 Unspecified atrial fibrillation; Z87.891 Personal history of nicotine dependence; Z72.89 Other problems related to lifestyle; X58.XXXD Exposure to other specified factors, subsequent encounter ==

== ENCOUNTER 2017-11-25 14:34 | Emergency (ER) | payer OTHER, MEDICARE ==
[~2017-11-25] VITALS: Ht 182.9 cm; Wt 94.3 kg
[2017-11-25 17:23] LABS: INR 3.5; PROTIME 35.3 Seconds (9.3-11.4)
[2017-11-25] MEDS ORDERED: HYDROCODONE-AP1 EAC6 PO (17:41)
[2017-11-25 17:57] VITALS: BP 115/70
== END 2017-11-25 17:58 | disposition home or self-care (01) ==
LOC: ER 14:34
PROVIDERS: Nurse Practitioner Family
DX: M25.461 Effusion, right knee (principal); M25.561 Pain in right knee; M79.604 Pain in right leg; R22.41 Localized swelling, mass and lump, right lower limb; I50.9 Heart failure, unspecified; K21.9 Gastro-esophageal reflux disease without esophagitis; I42.9 Cardiomyopathy, unspecified; Z87.891 Personal history of nicotine dependence; Z88.0 Allergy status to penicillin; Z91.048 Other nonmedicinal substance allergy status

== ENCOUNTER → 2018-06-06 | Outpatient (CLI) | payer OTHER, MEDICARE ==
[~2018-06-06] MED LIST changes: +HYDROCODONE-AP1 EAC6 PO
== END ==
LOC: RAD 08:41
DX: I48.91 Unspecified atrial fibrillation (principal); J84.9 Interstitial pulmonary disease, unspecified; R21 Rash and other nonspecific skin eruption; L29.9 Pruritus, unspecified

== ENCOUNTER 2018-11-24 11:47 | Inpatient (IN) | payer OTHER, MEDICARE ==
[~2018-11-24] VITALS: Ht 182.9 cm; Wt 87.1 kg
--- NOTE | ~2018-11-24 | HC ---
[facility] [place] [address] CONSULTATION Name: CORBIN NAVARRO Room #: 428-P [facility] IN .R.#: [id number] Admission: 11/24/18 Attend Phys: Froy Panda Discharge: Date of : 41 Report #: [id number] THIS REPORT FOR: //name// CC: Froy Padilla DATE OF SERVICE: 11/25/2018 HISTORY OF PRESENT ILLNESS: The patient is a 78-year-old white male who was trying to get out of bed when he had a fall with the onset of back pain. He was diagnosed with an L4 vertebral fracture. As he is on Coumadin, vertebroplasty is precluded. His course has been complicated by acute renal insufficiency. He has gait instability with decreased functional abilities and we are seeing him in rehabilitation medicine consultation. PAST MEDICAL HISTORY: Includes prior history of mitral valve replacement with coronary artery bypass grafting in 1995. He had a cardiac arrest at that time. He has had history of constrictive pericarditis and underwent pericardiectomy in 1996. He has had multiple approximately 5 episodes of atrial fibrillation with cardioversions. He had a pacemaker placed in 2004, history of CHF, severe cardiomyopathy, idiopathic dilated atrium, chronic anticoagulation, and pulmonary fibrosis. ALLERGIES: ADHESIVE VANCOMYCIN, LEVOFLOXACIN, PENICILLIN, SPIRONOLACTONE. HABITS: Former tobacco user. Alcohol use; no history. SOCIAL HISTORY: Lives in a house with , 2 steps in, he was premorbidly independent without gait aids. They do have a stair glide in the house itself. He was active, getting out in the community, goes for regular breakfast with other retirees. There is a daughter that is in the area and supportive. REVIEW OF SYSTEMS: Did not offer any current complaints of chest pain, shortness of breath or abdominal discomfort. PHYSICAL EXAMINATION: GENERAL: A pleasant 78-year-old male, in no obvious distress. VITAL SIGNS: Last recorded temperature 98, pulse 59, respirations 18, blood pressure 123/96. GENERAL: The patient is alert, appropriate. HEENT: Appeared to be benign. NEUROLOGIC: Cranial nerves are grossly intact. Facies are symmetric. He does have functional range of motion of the right upper extremity. He tends to favor moving that left upper extremity notes that he has had history of problems with his left shoulder, which is premorbid. Reasonable range of motion of the elbow, wrist and hand with strength grade 4+ to 4/5. In his lower extremities, there [address] [place] [address] CONSULTATION Name: CORBIN NAVARRO Room #: 428-P [facility] IN .R.#: [id number] Admission: 11/24/18 Attend Phys: Froy Panda Discharge: Date of : 41 Report #: [id number] is no focal calf swelling, functional range of motion with strength grade 4-/5. DTRs are trace to 1. He does have some back pain as expected. He is min assist with sit to stand. Gait was 250 feet mod assist front-wheeled walker with loss of balance with fatigue. ASSESSMENT: A 78-year-old white male with the following problems: 1. Multifactorial gait instability. 2. Fall with L4 vertebral compression fracture. 3. Chronic anticoagulation, not a candidate for vertebroplasty. 4. Acute renal insufficiency. 5. Severe cardiomyopathy. 6. History of pericardiectomy x 2. 7. Prior history of mitral valve replacement with coronary bypass grafting. 8. History of pulmonary fibrosis. PLAN: It is my impression that he should meet criteria for an acute in-hospital inpatient rehabilitation stay. He is continuing to get rehydrated. We will continue to have therapies work with him in the meantime and we will be glad to follow along with you regarding his rehab therapy needs. Note that occupational therapy will be evaluating as well. By: 1146 1223 Tyler Francois MD /nt
[2018-11-24 11:50] VITALS: BP 92/45
[2018-11-24 12:22] LABS: ABSOLUTE NEUTROPHILS 5.8 thou/uL (1.4-8.2); BASOPHILS 0.7 % (0.0-2.0); EOSINOPHILS 0.9 % (0.0-3.0); HEMATOCRIT 39.5 % (42.0-52.0); HEMOGLOBIN 12.8 gm/dL (14.0-18.0); LYMPHOCYTES 7.5 % (24.0-44.0); MCH 34.2 pg (26.0-34.0); MCHC 32.5 g/dL (28.0-37.0); MCV 105.2 fL (80.0-100.0); MONOCYTES 9.8 % (1.0-8.0); PLATELET COUNT 170 thou/uL (150-400); POLYS 81.1 % (36.0-66.0); RBC 3.75 mil/uL (4.50-6.00); RDW 17.1 % (10.5-14.5); WBC 7.1 thou/uL (4.0-11.0)
[2018-11-24 12:28] LABS: CALCIUM 8.3 mg/dL (8.5-10.1); CREATININE 2.4 mg/dL (0.7-1.3); POTASSIUM 4.4 mmol/L (3.5-5.1)
[2018-11-24 13:52] VITALS: BP 92/45
[2018-11-24 13:55] VITALS: BP 92/45
[2018-11-24 13:57] LABS: INR 3.9; PROTIME 40.3 Seconds (9.3-11.4)
[2018-11-24 14:13] VITALS: BP 91/42
[2018-11-24 20:00] VITALS: BP 92/50
--- NOTE | 2018-11-24 22:21 | EKG ---
[address] [employer] [place] [address] ELECTROCARDIOGRAM REPORT Name: MELANIECORBINJEAN JIMENESFELICITY Room #: 428-P ADM IN M.R.#: [id number] Admission: 11/24/18 Attend Phys: Froy Panda Discharge: Date of : 41 Report #: [id number] THIS REPORT FOR: //name// [facility] ED Test Date: 2018-11-24 Test Time: 11:56:18 Pat Name: CORBIN NAVARRO Department: Room: 428 Gender: M Machine Washer: CATHERINE : 1940 Requested By: Laila Nickerson Order Number: [id number] MD: Adam Araya Measurements Intervals [place] Rate: 60 P: CO: QRS: 267 QRSD: 151 T: 68 QT: 512 QTc: 512 Interpretive Statements Afib/flutter and ventricular-paced rhythm No further analysis attempted due to paced rhythm Compared to ECG 06/03/2017 11:24:21 No significant changes Electronically Signed On 11-24-2018 22:21:34 [employer] by Adam Araya [email or web address] <ELECTRONICALLY SIGNED> By: Adam Araya MD 11/24/18 2221 1156 1156 Adam Araya MD /EPI
[2018-11-25 03:08] LABS: INR 3.7; PROTIME 38.2 Seconds (9.3-11.4)
[2018-11-25 05:05] VITALS: BP 87/42
[2018-11-25 07:45] VITALS: BP 123/96
[2018-11-25 15:59] VITALS: BP 80/46
[2018-11-25 19:45] VITALS: BP 112/48
[2018-11-25 23:25] LABS: URINE BILIRUBIN NEGATIVE (Negative); URINE CLARITY CLEAR; URINE COLOR YELLOW; URINE GLUCOSE-RANDOM* NEGATIVE (Negative); URINE KETONES NEGATIVE (Negative); URINE PROTEIN (DIPSTICK) NEGATIVE (Negative)
[2018-11-25 23:26] LABS: URINE BLOOD TRACE (Negative); URINE LEUKOCYTES-REFLEX TRACE (Negative); URINE NITRITE-REFLEX NEGATIVE (Negative); URINE UROBILINOGEN 0.2 E.U./dl (0.2-1.0)
[2018-11-26 00:21] VITALS: BP 95/51
[2018-11-26 04:53] VITALS: BP 121/51
[2018-11-26 05:38] LABS: PROTIME 51.6 Seconds (9.3-11.4)
[2018-11-26 05:40] LABS: ALBUMIN 2.1 g/dL (3.4-5.0); CALCIUM 8.3 mg/dL (8.5-10.1); CREATININE 1.7 mg/dL (0.7-1.3); POTASSIUM 4.9 mmol/L (3.5-5.1)
[2018-11-26 08:40] VITALS: BP 111/66
[2018-11-26 15:14] VITALS: BP 111/60
[2018-11-26 15:17] VITALS: BP 111/60
[2018-11-26 22:18] VITALS: BP 120/55
[2018-11-27 00:10] VITALS: BP 107/57
[2018-11-27 05:11] VITALS: BP 114/62
[2018-11-27 05:42] LABS: ALBUMIN 2.2 g/dL (3.4-5.0); CALCIUM 8.6 mg/dL (8.5-10.1); CREATININE 1.2 mg/dL (0.7-1.3); PHOSPHORUS 2.5 mg/dL (2.5-4.9)
[2018-11-27 05:44] LABS: POTASSIUM 5.7 mmol/L (3.5-5.1)
[2018-11-27 05:59] LABS: INR 1.5
[2018-11-27 07:59] VITALS: BP 111/56
--- NOTE | 2018-11-27 12:18 | 2DMMODE ---
[facility] [address] [place] [address] 2 D/M-MODE ECHOCARDIOGRAM Name: MELANIECORBIN KASSANDRA Room #: 428-P ADM IN M.R.#: [id number] Admission: 11/24/18 Attend Phys: Froy Mahmood Discharge: Date of : 42 Date of Service: 11/27/18 1217 Report #: [id number] THIS REPORT FOR: //name// APPROVED REPORT Study performed: 11/27/2018 10:51:18 EXAM: Comprehensive 2D, Doppler, and color-flow Echocardiogram Patient Location: Echo lab Room #: 428 Status: routine BSA: 2.09 HR: 60 bpm BP: 111/56 mmHg Rhythm: Pacemaker Other Information Study Quality: Adequate Indications Atrial Fibrillation Cardiomyopathy Mechanical St Juan Miguel Mitral Valve 2D Dimensions RVDd: 58.26 mm IVSd: 10.04 (7-11mm) LVOT Diam: 25.48 (18-24mm) LVDd: 63.14 mm PWd: 8.42 (7-11mm) Ascending Ao: 34.95 (22-36mm) LVDs: 54.84 (25-40mm) Aortic Root: 36.61 mm IVC: 26.00 mm Volumes Left Atrial Volume (Systole) Single Plane 4CH: 225.11 mL Single Plane 2CH: 141.91 mL LA ESV Index: 92.00 mL/m2 Aortic Valve AoV Peak Chicho.: 1.03 m/s AO Peak Gr.: 4.26 mmHg LVOT Max P.97 mmHg LVOT Max V: 0.70 m/s MARIA M Vmax: 3.46 cm2 AI Vmax: 3.58 m/s AI Marion: 2.05 m/s2 AI PHT: 504.[address] [facility] [address] [place] [address] 2 D/M-MODE ECHOCARDIOGRAM Name: NAVARROCORBIN CANNON Room #: 428-[facility] IN ..#: [id number] Admission: 11/24/18 Attend Phys: Froy Mahmood Discharge: Date of : 41 Date of Service: 11/27/18 1217 Report #: [id number] Pulmonary Valve PV Peak Chicho.: 0.96 m/s PV Peak Gr.: 3.72 mmHg Tricuspid Valve TR Peak Chicho.: 3.04 m/s TR Peak Gr.: 37.12 mmHg PA Pressure: 47.00 mmHg Left Ventricle Left ventricle is dilated. There is severe global hypokinesis of the left ventricle. There is normal left ventricular wall thickness. Left ventricular ejection fraction is severely decreased. LVEF is 25%. This study is not technically sufficient to allow evaluation of the LV diastolic function. Right Ventricle Right ventricle is dilated. Right ventricle is hypokinetic. Atria Left atrium is dilated. Right atrium is dilated. Aortic Valve The aortic valve is normal in structure. Aortic valve is calcified. Mild aortic regurgitation. There is no aortic valvular stenosis. Mitral Valve There is a St Juan Miguel mechanical mitral valve. Mild mitral regurgitation. Tricuspid Valve The tricuspid valve is normal in structure. There is mild tricuspid regurgitation. Estimated PAP 47 mmHg. There is moderate pulmonary hypertension. Pulmonic Valve The pulmonary valve is normal in structure. Trace pulmonic regurgitation. Great Vessels The aortic root is normal in size. IVC is dilated and collapses >50% with inspiration. Pericardium [facility] [place] [address] 2 D/M-MODE ECHOCARDIOGRAM Name: CORBIN NAVARRO Room #: 428-P [facility] IN M.R.#: [id number] Admission: 11/24/18 Attend Phys: Froy Mahmood Discharge: Date of : 42 Date of Service: 11/27/18 1217 Report #: [id number] There is no pericardial effusion. <Conclusion> Left ventricle is dilated. LVEF is 25%. There is severe global hypokinesis of the left ventricle. Right ventricle is dilated. Right ventricle is hypokinetic. Left atrium is dilated. Right atrium is dilated. The aortic valve is normal in structure. Aortic valve is calcified. Mild aortic regurgitation. There is a St Juan Miguel mechanical mitral valve. Mild mitral regurgitation. The tricuspid valve is normal in structure. There is mild tricuspid regurgitation. Estimated PAP 47 mmHg. There is moderate pulmonary hypertension. The pulmonary valve is normal in structure. Trace pulmonic regurgitation. <ELECTRONICALLY SIGNED> By: Luiz Contreras MD 11/27/18 1217 16 16 Luiz Contreras MD /INF
[2018-11-27 13:15] LABS: CALCIUM 8.7 mg/dL (8.5-10.1); CREATININE 1.3 mg/dL (0.7-1.3); POTASSIUM 4.6 mmol/L (3.5-5.1)
[2018-11-27 17:00] VITALS: BP 105/57
[2018-11-27 19:30] VITALS: BP 110/49
[2018-11-27 19:39] VITALS: BP 110/49
[2018-11-28 04:10] LABS: CALCIUM 8.1 mg/dL (8.5-10.1); CREATININE 0.9 mg/dL (0.7-1.3)
[2018-11-28 04:22] LABS: POTASSIUM 4.7 mmol/L (3.5-5.1)
[2018-11-28 04:36] VITALS: BP 112/65
[2018-11-28 07:32] VITALS: BP 119/62
[2018-11-28 10:33] LABS: INR 1.3; PROTIME 13.9 Seconds (9.3-11.4)
[2018-11-28 15:08] LABS: BE(vivo) -5.6 mmol/L (-2 to +3); HCO3 17.4 mmol/L (22.0-26.0); PCO2 27.8 mmHg (35.0-45.0); PO2 73.7 mmHg (80.0-100.0); pH 7.414 (7.360-7.450); sO2 95.3 % (92.0-98.0)
[2018-11-28 16:19] VITALS: BP 119/68
[2018-11-28 20:11] VITALS: BP 105/66
[2018-11-29 04:36] VITALS: BP 118/61
[2018-11-29 05:51] LABS: INR 1.4; PROTIME 14.9 Seconds (9.3-11.4)
[2018-11-29 07:34] VITALS: BP 117/57
[2018-11-29] MEDS ORDERED: ENOXAPARIN80 MG/0.1 SUBQ (09:44)
[2018-11-29 09:45] VITALS: BP 117/57
[2018-11-29] MEDS ORDERED: PACERONE 200 M200 M1 PO (09:45)
== END 2018-11-29 18:40 | DRG 515 ==
LOC: ER 11:47 → EROBS 13:02 → 4E 13:02
PROVIDERS: Internal Medicine Cardiovascular Disease; Nurse Practitioner Acute Care; Nurse Practitioner Gerontology; Student in an Organized Health Care Education/Training Program; ADMIT Hospitalist
PROC: 0QS03ZZ Reposition Lumbar Vertebra, Percutaneous Approach (ICD-10-PCS; principal; 2018-11-29)
PROC: 0QU03JZ Supplement Lumbar Vertebra with Synthetic Substitute, Percutaneous Approach (ICD-10-PCS; principal; 2018-11-29)
DX: S32.049A Unspecified fracture of fourth lumbar vertebra, initial encounter for closed fracture (principal); E43 Unspecified severe protein-calorie malnutrition; N17.9 Acute kidney failure, unspecified; I42.9 Cardiomyopathy, unspecified; I50.20 Unspecified systolic (congestive) heart failure; I47.2 Ventricular tachycardia; D68.9 Coagulation defect, unspecified; G89.29 Other chronic pain; M54.9 Dorsalgia, unspecified; I48.2 Chronic atrial fibrillation; K21.9 Gastro-esophageal reflux disease without esophagitis; E03.9 Hypothyroidism, unspecified; G47.33 Obstructive sleep apnea (adult) (pediatric); M10.9 Gout, unspecified; J84.10 Pulmonary fibrosis, unspecified; M85.80 Other specified disorders of bone density and structure, unspecified site; E53.8 Deficiency of other specified B group vitamins; M62.84 Sarcopenia; W06.XXXA Fall from bed, initial encounter; Y93.89 Activity, other specified; Y92.89 Other specified places as the place of occurrence of the external cause; Y99.8 Other external cause status; Z68.26 Body mass index [BMI] 26.0-26.9, adult; Z88.1 Allergy status to other antibiotic agents; Z88.0 Allergy status to penicillin; Z88.8 Allergy status to other drugs, medicaments and biological substances; Z87.891 Personal history of nicotine dependence; Z95.2 Presence of prosthetic heart valve; Z95.1 Presence of aortocoronary bypass graft; Z95.0 Presence of cardiac pacemaker; Z79.01 Long term (current) use of anticoagulants; Z90.49 Acquired absence of other specified parts of digestive tract
CPT/HCPCS: 10084

== ENCOUNTER 2018-11-29 18:11 | Inpatient (IN) | payer OTHER, MEDICARE ==
[~2018-11-29] VITALS: Ht 182.9 cm; Wt 92.1 kg
[~2018-11-29 18:11] MED LIST changes: +ENOXAPARIN80 MG/0.1 SUBQ
[2018-11-29 18:45] VITALS: BP 98/58
[2018-11-29 20:36] VITALS: BP 103/48
--- NOTE | 2018-11-30 02:32 | NUR ---
assumed care at approx 1900 evening 11/29. pt new admit arriving to floor approx 1830. pt alert and oriented x4, appropriate and cooperative. pt somewhat restless and anxious near hs. pt given pain med and was able to relax and sleep. 02 at 2l per n/c at present. pt took hs meds with water tolerating well. pt appears to be sleeping soundly with hourly rounding checks. bed alarm on, call light in reach. daughter sleeping at bedside. will continue to monitor.
[2018-11-30 06:07] LABS: HEMATOCRIT 39.4 % (42.0-52.0); MCH 34.6 pg (26.0-34.0); MCHC 33.1 g/dL (28.0-37.0); MCV 104.7 fL (80.0-100.0); RBC 3.76 mil/uL (4.50-6.00); WBC 6.2 thou/uL (4.0-11.0)
[2018-11-30 06:19] LABS: INR 1.8
[2018-11-30 06:21] LABS: CALCIUM 8.7 mg/dL (8.5-10.1); CREATININE 1.5 mg/dL (0.7-1.3); POTASSIUM 3.9 mmol/L (3.5-5.1)
[2018-11-30 08:34] VITALS: BP 110/56
--- NOTE | 2018-11-30 13:58 | NUR ---
ASSUMED CARES AT 0700. PT AWAKE, ALERT AND ORIENTED *4. C/O BACK PAIN, TRAMADOL ADMINISTERED NEEDED. VITALS REMAINED STABLE. DRESSING ON HAND LEFT CHANGED. PT CONTINUES TO HAVE MILD EDEMA IN BLE. UP WITH 1 PERSON MIN ASSIST AND TOLERATED WELL. AMBULATED WITH THERAPY ON THE HALLWAYS. PT ATE 25-50% OF BOTH BREAKFAST AND LUNCH. BG REMAINS STABLE. Q1H VISUAL CHECKS. CALL LIGHT WITHIN REACH. FALL PRECAUTIONS IN PLACE
[2018-11-30 19:23] VITALS: BP 107/50
--- NOTE | 2018-11-30 22:00 | NUR ---
ABLE TO STAND FROM CHAIR WITH SBA AND USING WALKER AFTER PUT IN FRONT OF HIM. SBA TO BATHROOM AND SAT WITH SBA. MANAGED HIS CLOTHES AND WAS ABLE TO TAKE OFF SHIRT WHILE SITTING AT EDGE OF BED, STOOD UP TO BEGIN SWEATPANTS REMOVAL. ABLE TO GET LEGS BACK IN BED ALONE. DAUGHTER AT BEDSIDE AND IS EAGER TO BE ALLOWED TO HELP HIM TO THE BATHROOM HERSELF AND WOULD BE WILLING TO DO TRAINING WITH PT IF NECESSARY. FRIENDLY, AMBIEN BY REQUEST
[2018-12-01 05:58] LABS: INR 2.3; PROTIME 23.6 Seconds (9.3-11.4)
[2018-12-01 07:15] VITALS: BP 102/60
--- NOTE | 2018-12-01 11:07 | NUR ---
ASSUMED CARE AT 0700. PATIENT IS ALERT AND ORIENTEDX2. PATIENT ROSARIO'S, EFFICIENCY MINER ARE EQUAL. LUNGS ARE CLEAR AND DEMINISHED. ABD IS SOFT WITH BSX4. 02 SAT 95 % R.A. UP IN BED FOR MEALS. FALL AND SAFETY PROTOCOLS IN PLACE. C/O PAIN IN HIS BACK AND WAS MEDICATED WITH PRN PAIN MED. PATIENT CONTINUES TO PROGRESS SLOWLY TOWARDS D/C GOALS. WILL CONTINUE TO MONITER.
--- NOTE | 2018-12-01 11:09 | NUR ---
0830 PATIENT C/O SOA. 02 SAT 87% PATIENT CAN HAVE 02 AT 2L PRN FOR SOA. PATIENT PLACED ON 02 AT 2L PER N/C. PATIENT FEELING MUCH BETTER. 02 SAT 97% ON 2L PERN N/C. WILL CONTINUE TO MONITER
[2018-12-01 16:25] VITALS: BP 96/60
[2018-12-01 19:12] VITALS: BP 97/59
--- NOTE | 2018-12-02 01:25 | NUR ---
UP TO BATHROOM WITH STANDBY ASSIST, STATES SMALL BM, MANAGING OWN CLOTHES. BLOOD SUGAR = 99 AT HS. RESTING NOW AFTER AMBIEN AT HS ALOLNG WITH AN ULTRAM FOR LOW BACK PAIN. APPRECIATES LOVENOX BEING DC'd, PLEASANT
[2018-12-02 04:34] LABS: INR 2.2; PROTIME 22.9 Seconds (9.3-11.4)
[2018-12-02 08:13] VITALS: BP 110/72
--- NOTE | 2018-12-02 11:40 | NUR ---
CM CONSULTED FOR DCP. CM INTRO TO PT WHO GETTING READY TO WORK WITH OT, OK TO VISIT WITH MATT OR DAUGHTER WILL PER . EDUCATION ON TEAM MEETINGS, TRANSITION OF CARE, AND HOME HEALTH. PT TOOK OXYGEN OFF TO SHOWER WITH OT " I DO NOT HAVE OXYGEN AT HOME "CORBIN. " LIVE IN HOUSE, HAS BASEMENT WITH STAIR LIFT. MAYBE 15 + STEP IF WE DID NOT HAVE THAT. HAVE SHOWER , MANAGE HIS OWN MEDICATION IN PILL BOX, WAS DRIVING PRIOR TO HOSPITAL. USE CPAP AT BEDTIME. SORRY IF REPEAT SOMETIME BY BRAIN CANT KEEP ALL THIS INFORMATION, THAT IS WHY OUT CATHERINE SOLIS IS BIG HELP. HE HAS HOME HEART MONITOR, HAS PACEMAKER AND DEFIBRILLATOR. BY HAS TO DO THING BIG NOT SMALL. BEEN TO [facility] REHAB IN PAST BUT NO HOME HEALTH."/ MATT. WILL CONT FOLLOWING NEEDED FOR DC NEEDS.
--- NOTE | 2018-12-02 14:50 | NUR ---
Nutrition: pt admitted to rehab S/P vertebroplasty, general debility. Consulted for poor intake. Pt voices generally good appetite however has been decreased for several days due to nausea which he attributes to meds. Zofran is ordered. Intake documented as 25% of meals last few days. On Renal diet for APOLINAR and 1500 ml Fluid restriction. Will resume ensure pudding and magic cup supplements as pt enjoyed these on acute. UBWs in the 190s, current 203#. Pt with upper extremity edema and on lasix. Likes the food options he has been receiving. Encourage snacks or supplements between meals. Follow for improved intake. Consider low nutrition risk with interventions in place.
[2018-12-02 17:34] VITALS: BP 109/70
--- NOTE | 2018-12-02 18:00 | NUR ---
ASSUMED CARE AT APPROX 0715. PATIENT A/O X4. C/O BACK PAIN AND RIGHT SHOULDER PAIN. LIDODERM PATCH ORDERED FOR RIGHT SHOULDER. TRAMADOL GIVEN PER ORDERS. PATIENT PARTICIPATED IN THERAPY. EDEMA TO LEFT UPPER EXTREMITY, WEEPING. US ORDERED, NO DVT. 3 SKIN TEARS TO LEFT ARM REDRESSED WITH FOAM, ARM WRAPPED WITH KERLIX AND ABD. BP MONITORED, BP MEDS GIVEN PER ORDERS. FALL PRECAUTIONS IN PLACE. RESTING IN BED AT CHANGE OF SHIFT.
[2018-12-02 20:30] VITALS: BP 101/62
--- NOTE | 2018-12-02 21:32 | HC ---
[facility] [place] [address] CONSULTATION Name: CORBIN NAVARRO Room #: 503-P [facility] IN M.R.#: [id number] Admission: 11/29/18 Attend Phys: Tyler Francois MD Discharge: Date of : 42 Report #: [id number] THIS REPORT FOR: //name// CC: Tyler Martineze Valerie DATE OF SERVICE: 11/30/2018 Neurobehavioral Status Exam ATTENDING PHYSICIAN: Tyler Francois MD PATTERN CHAIN BUILDER: Ken Bui, PhD CLINICAL PRESENTATION: The patient is a 78-year-old male, admitted to the [facility] Unit for comprehensive inpatient rehabilitation program to improve functional mobility, activities of daily living and self-care and general mobility secondary to a L4 vertebral fracture and fall. The patient was at home when he was getting out of bed and fell striking his back, hip and possibly head. He was independent with all instrumental activities of daily living prior to the fall. His diagnoses on admission to rehabilitation include multifactorial gait instability, fall with L4 vertebral compression fracture, chronic anticoagulation, acute renal insufficiency, severe cardiomyopathy, history of pericardiectomy times 2, prior history of mitral valve replacement with coronary artery bypass grafting and a history of pulmonary fibrosis. A complete description of his medical condition and history along with medications can be found in his medical record. Neuropsychological consultation was requested to provide assistance in the assessment of cognitive and emotional status and to provide recommendations and services. Prior to this most recent medical event, he was living independently at home with his . The patient is a retired haul truck driver. He is a high school graduate. He had 3 children. Two children are . One child about 2 years ago and the other several years ago. He does not report a prior history of treatment for anxiety or depression. There is no history of alcohol or drug abuse. TECHNIQUES UTILIZED: Clinical interview, review of medical records, staff consultation and behavioral observation, Mini-Mental Status Exam 2 standard version, and clock drawing. EXAMINATION FINDINGS: The patient was alert and cooperative with the assessment. He accurately described events surrounding his admission. There is no evidence of aphasia. His thoughts are logical and goal oriented. There is [facility] [address] [place] [address] CONSULTATION Name: NAVARROCORBIN YUDYFELICITY Room #: 503-P [facility] IN M.R.#: [id number] Admission: 11/29/18 Attend Phys: Tyler Francois MD Discharge: Date of : 42 Report #: [id number] no report of auditory or visual hallucinations. He does not present with a thought disorder. He was pleasant and engaging during the interview. He describes his symptoms to include anxiety. He noted what appears to be panic attack prior to sleep onset several days ago. He does not report difficulty with sleep generally or with appetite. He denies subjective depression. Problems with pain and intermittent difficulty with word finding are described. Memory and concentration are within normal limits. His performance on the MMSE-2 brief version is within normal limits with a raw score of 14 of 16. He was 3/3 for initial registration, 4/5 for orientation to time, 5/[address] and 2/3 for immediate recall of 3 items after a brief time delay and distraction. Performance on the MMSE-2 standard version is within normal limits with raw score 27 of 30. He was 4/5 for serial 7s, 2/2 for naming, 1/1 for repetition, 3/3 for auditory comprehension. Reading, writing, and copying a simple geometric design are within normal limits. The patient had difficulty with aspects of clock drawing to the extent of hand placement. Subtle difficulty with visual spatial construction is suggested. Neurocognitive functioning is generally within normal limits. Subtle deficit in visual spatial organization is suggested. Increased anxiety, likely secondary to adjustment is noted. DIAGNOSTIC IMPRESSION: Adjustment disorder with anxious mood. RECOMMENDATIONS: Continued psychological support as needed. The use of relaxation techniques may be of benefit. Assisting the patient in recognizing the details of recovery along with his ability to return to prior levels of independence will be of benefit. Further discussion of the reason why he fell may also be of benefit to decrease the probability of subsequent falls. Thank you very much for allowing me to provide the consultation on this patient. <ELECTRONICALLY SIGNED> By: Ken Bui, PhD 12/02/18 [id number] Ken Bui, PhD /nt
--- NOTE | 2018-12-02 23:06 | NUR ---
assumed care at approx 1900 evening 12/02. pt sitting up in bed at change of shift. pt alert and oriented x4, appropriate and cooperative. daughter at bedside. pt up to bathroom with 1 assist to have large bm tonight. 02 at 2L per pt request. pt took hs meds with no problems. pt back to bed now. call light in reach. bed alarm on. will continue to monitor.
[2018-12-03 04:35] LABS: ABSOLUTE NEUTROPHILS 4.2 thou/uL (1.4-8.2); BASOPHILS 0.6 % (0.0-2.0); EOSINOPHILS 1.1 % (0.0-3.0); HEMATOCRIT 38.5 % (42.0-52.0); HEMOGLOBIN 12.5 gm/dL (14.0-18.0); LYMPHOCYTES 10.2 % (24.0-44.0); MCH 34.1 pg (26.0-34.0); MCHC 32.4 g/dL (28.0-37.0); MCV 105.1 fL (80.0-100.0); MONOCYTES 9.6 % (1.0-8.0); PLATELET COUNT 215 thou/uL (150-400); POLYS 78.5 % (36.0-66.0); RBC 3.66 mil/uL (4.50-6.00); RDW 16.5 % (10.5-14.5); WBC 5.3 thou/uL (4.0-11.0)
[2018-12-03 04:45] LABS: CALCIUM 8.3 mg/dL (8.5-10.1); CREATININE 1.5 mg/dL (0.7-1.3); MAGNESIUM 1.8 mg/dL (1.8-2.4); POTASSIUM 4.3 mmol/L (3.5-5.1)
[2018-12-03 05:00] LABS: INR 2.7; PROTIME 27.8 Seconds (9.3-11.4)
[2018-12-03 07:48] VITALS: BP 105/56
--- NOTE | 2018-12-03 12:28 | NUR ---
team meeting, recommendation : home with hh ( pt,ot, nursing), needing 4 wheeled walker with seat and breaks. ween off o2. daughter terra is to bring pt cpap to use here. dc 12/09/18
--- NOTE | 2018-12-03 15:33 | NUR ---
ASSUMED CARES AT 0700. PT AWAKE, A/O*4. C/O PAIN IN HIS BACK 02/02, LIDOCAINE PATCH AND VOLTAREN GEL APPLIED ORDERED. ABDOMEN FIRM AND ROUND, PT C/O NAUSEA, ZOFRAN ADMINISTERED WITH MINIMAL EFFECT. KUB ORDERED, SHOWED NO OBSTRUCTION/ ILLEUS, SHOWED MODERATE AMOUNT OF STOOL. MAGNESIUM CITRATE AND SENNA/DOC ORDERED AND ADMINISTERED. PT C/O SOB WITH EXERCION, INCREASED ANXIETY CAUSING SOB, ON 2L OXYGEN VIA NC WITH SATS AT 95%. LS REMAIN CLEAR/ DIMINISHED IN THE BASES. PT STARTED ON MIRTAZAPINE AT HS FOR ANXIETY, 1ST DOSE TO BE GIVEN TONIGHT. HYDROXYZINE ADMINISTERED AT 1200. Q1H VISUAL CHECKS. CALL LIGHT WITHIN REACH. FALL PRECAUTIONS IN PLACE
[2018-12-03 16:25] VITALS: BP 109/65
[2018-12-03 19:51] VITALS: BP 101/56
--- NOTE | 2018-12-04 01:04 | NUR ---
PT ALERT AND ORIENTED X 4. AMB TO BR WITH WALKER AND ASSIST X 1 WITHOUT DIFFICULTY. 02 ON AT 2L PER NC. CPAP ON DURING THE NIGHT. INCONT LARGE AMT LIQUID STOOL X 1. PT DENIES PAIN OR DISCOMFORT. NO N/V. BED ALARM ON FOR SAFETY. PT CHECKED ON HOURLY ROUNDS.
[2018-12-04 05:44] LABS: INR 3.4; PROTIME 35.5 Seconds (9.3-11.4)
[2018-12-04 08:53] VITALS: BP 117/65
--- NOTE | 2018-12-04 10:06 | NUR ---
ASSUMED CARES AT 0700. PT SLEEPY THIS AM, ALERT AND ORIENTED*4. DENIES PAIN. C/O MILD NAUSEA WITH BREAKFAST BUT REFUSED ANTIEMETIC DRUGS. VITALS REMAIN STABLE. ANXIOUS AND SUBSEQUENT SOB, HYROXYZINE ADMINISTERED NEEDED. SATS >95% ON RA, LS CLEAR. PT RESTING AFTER AM THERAPY. ATE 25% HIS BREAKFAST, STATED THAT THE FOOD WAS NOT APPETIZING. LEFT ARM EDEMA DECREASED, 3SKIN TEARS ON ARM WEEPING, DRESSING CHANGED. PT UP WITH 1 PERSON ASSIST, GAITBELT AND WALKER AND TOLERATED WELL. Q1H VISUAL CHECKS. CALL LIGHT WITHIN REACH. FALL PRECAUTIONS IN PLACE
[2018-12-04 11:26] LABS: CREATININE 1.5 mg/dL (0.7-1.3)
--- NOTE | 2018-12-04 15:00 | NUR ---
Patient participated in community reintegration on 12/04/18 with PT. Refer to documentation by PT.
--- NOTE | 2018-12-04 15:53 | NUR ---
pt, daughter trera and andre requested referral for hh be sent to [facility]. when talking with she is requested that dr purvis pt left arm and shoulder rt pain, all bruising and dec in mobility. cm passed on information to bedside nurse to cont following. referral sent to [facility].
--- NOTE | 2018-12-04 16:30 | NUR ---
NOTIFIED [facility] OF REFERRAL THEY WILL REVIEW AND ANTICIPATE DC Sunday12/09/18. DCP TO FOLLOW.
[2018-12-04 19:20] VITALS: BP 105/57
[2018-12-05 05:51] LABS: INR 4.1; PROTIME 42.3 Seconds (9.3-11.4)
--- NOTE | 2018-12-05 05:59 | NUR ---
ON CPAP ALL NIGHT AND ON ROOM AIR, NO SOB NOTED, GIVEN TRAMADOL FOR BACK PAIN, LEFT ARM ELEVATED OVER PILLOW, DRESSING INTACT, SLIGHT DRAINAGE, BLE WITH 2 PLUS EDEMA, NEGATIVE FOR DVT PER US YESTERDAY, SCDS APPLIED AND TOLERATED IT, SENT AN INBASKET MESSAGE TO PHARMACY, 4.1 IS THE INR THIS MORNING, PT ON COUMADIN FOR MITRAL VALVE REPLACEMENT, MONITORED FOR BLEEDING, ASSISTED WITH BED TURNING/REPOSITION, PT ALERT/ORIENTED, BED ALARM ON, NO BM PASSED, MONITORED.
[2018-12-05 07:20] VITALS: BP 106/61
--- NOTE | 2018-12-05 13:30 | NUR ---
cm spoke with pt and daughter terra rt [facility] unable to cover his home area. ok per pt and daughter to send referral to [facility] [place] [facility] .
[2018-12-05 14:33] VITALS: BP 106/61
--- NOTE | 2018-12-05 16:34 | NUR ---
ASSUMED CARE AT APPROX 0715. PATIENT A/O X4. DENIES PAIN. VSS. LABS REVIEWED - INR ELEVATED, PROVIDER NOTIFIED, ORDERS RECEIVED. PATIENT PARTICIPATED IN THERAPY. DRESSINGS X3 TO LEFT UPPER EXTREMITIES CHANGED, RE-WRAPPED WITH GAUZE AND ABD FOR WEEPING EDEMA, EXTREMITY LOOKS MORE REDDENED TODAY, PROVIDER AWARE, WILL CONTINUE TO MONITOR. XRAYS TAKEN OF ARM REVEAL NO OSSEOUS CHANGES. FALL PRECAUTIONS IN PLACE. WILL CONTINUE TO MONITOR.
[2018-12-05 21:02] VITALS: BP 89/47
--- NOTE | 2018-12-05 22:37 | NUR ---
PT ALERT AND ORIENTED X 4. AMB TO BR WITH WALKER AND ASSIST X 1 WITHOUT DIFFICULTY. 02 ON AT 2L PER NC. CPAP ON FOR ONLY A COUPLE OF HOURS AND THEN PT ASKED TO TAKE IT OFF. LEFT ARM DRESSING C/D/I. PT DENIES PAIN OR DISCOMFORT. BED ALARM ON FOR SAFETY. PT CHECKED ON HOURLY ROUNDS.
[2018-12-06 05:30] LABS: ABSOLUTE NEUTROPHILS 6.7 thou/uL (1.4-8.2); BASOPHILS 0.4 % (0.0-2.0); EOSINOPHILS 0.5 % (0.0-3.0); HEMATOCRIT 38.3 % (42.0-52.0); HEMOGLOBIN 12.7 gm/dL (14.0-18.0); MCH 34.6 pg (26.0-34.0); MCHC 33.2 g/dL (28.0-37.0); MCV 104.4 fL (80.0-100.0); MONOCYTES 5.7 % (1.0-8.0); PLATELET COUNT 211 thou/uL (150-400); POLYS 87.4 % (36.0-66.0); RBC 3.67 mil/uL (4.50-6.00); RDW 17.6 % (10.5-14.5); WBC 7.7 thou/uL (4.0-11.0)
[2018-12-06 05:40] LABS: INR 4.3; PROTIME 44.7 Seconds (9.3-11.4)
[2018-12-06 06:01] LABS: CALCIUM 8.4 mg/dL (8.5-10.1); CREATININE 1.5 mg/dL (0.7-1.3); MAGNESIUM 2.4 mg/dL (1.8-2.4); POTASSIUM 4.1 mmol/L (3.5-5.1)
[2018-12-06 08:00] VITALS: BP 103/51
--- NOTE | 2018-12-06 10:17 | NUR ---
ASSUMED CARES AT 0700. PT AWAKE, ALERT AND ORIENTED *4. DENIES PAIN AT THIS TIME. PT CONTINUES TO HAVE VERY POOR APPETITE, STATED THAT HOSPITAL FOOD TASTES FLAT AND ITS MAKING HIM NAUSEOUS. SATS <90% ON RA THIS AM, PT ON 2L OXYGEN WITH SATS 100%, PT SEEMED ANXIOUS HYDROXYZINE ADMINISTERED NEEDED. PT CONTINUES TO HAVE EDEMA IN LEFT ARM AND BLE. ENCOURAGED TO ELEVATE EXTREMITIES, GHISLAINE HOSE ON. LEFT ARM CONTINUES TO HAVE SKIN TEARS, ARM CONTINUES TO WEEP. DRESSING CHANGED AFTER BATH. PT HAD 1 LARGE LIQUID BM THIS AM, INCONTINENCE *1, MIRALAX GIVEN PRIOR TO INCIDENCE. ABDOMEN SOFT AND ROUND, BS ACTIVE *4. Q1H VISUAL CHECKS. CALL LIGHT WITHIN REACH. FALL PRECAUTIONS IN PLACE
[2018-12-06 17:00] VITALS: BP 101/54
[2018-12-06 21:20] VITALS: BP 102/55
--- NOTE | 2018-12-07 02:00 | NUR ---
assumed care at approx 1900 evening 12/06. pt lying in bed with head of bed elevated resting with daughter at bedside. pt alert and oriented x4, appropriate and cooperative. pt took hs meds with water tolerating well. pt refused to wear cpap tonight stating he did not sleep well last night with it on. resp aware and pt with 02 at 2l per n/c at present. pt with pulse oximeter in place with 02 sats within normal range. daughter here at bedside. call light in reach and bed alarm on. will continue to monitor.
[2018-12-07 06:20] LABS: INR 3.1; PROTIME 32.6 Seconds (9.3-11.4)
[2018-12-07 07:00] VITALS: BP 110/54
--- NOTE | 2018-12-07 16:12 | NUR ---
ASSUMED CARE AT APPROX 0715. PATIENT A/O X4. DENIES PAIN, C/O SOME DISCOMFORT IN SHOULDER, ALLEVIATED BY REST AND LIDODERM PATCH. PARTICIPATING IN THERAPY. C/O SOA DURING SESSION, O2 SATS DROPPED TO 89% WITH PT, PATIENT PLACED ON 2L O2, SATS CAME UP TO 99% WITH REST. PATIENT TITRATED BACK DOWN TO ROOM AIR. CHEST X RAY ORDERED. LEFT ARM EDEMATOUS, ELEVATED WHILE AT REST. PATIENT REPORTS LESS WEEPING EDEMA THAN PREVIOUS DAYS. COUMADIN MANAGED BY PHARMACY - INR 3.1 THIS DATE. O2 STUDY REORDERED FOR TONIGHT PENDING D/C SUNDAY. FALL PRECAUTIONS IN PLACE. JOSE L'S DAUGHTER AT BEDSIDE. WILL CONTINUE TO MONITOR.
[2018-12-07 20:05] VITALS: BP 93/47
--- NOTE | 2018-12-08 03:21 | NUR ---
assumed care at approx 1900 evening 12/07. pt sitting up in bed at change of shift resting with daughter at bedside. pt alert and oriented x4, appropriate and cooperative. pt took hs meds without difficulty. pt on nocturnal desat study tonight. pt presently on room air and pulse oximeter in place. sats have been 95% and higher. no alarms have beeped so far this shift. pt appears to be sleeping well with hourly rounding. call light in reach. bed alarm on and daughter at bedside. will continue to monitor.
[2018-12-08 06:51] LABS: CALCIUM 8.3 mg/dL (8.5-10.1); CREATININE 1.4 mg/dL (0.7-1.3); MAGNESIUM 2.1 mg/dL (1.8-2.4); POTASSIUM 4.4 mmol/L (3.5-5.1)
[2018-12-08 07:20] VITALS: BP 105/58
--- NOTE | 2018-12-08 10:42 | NUR ---
ASSUMED CARES AT 0700. PT AWAKE, ALERT&ORIENTED*4. DENIES PAIN. VITALS STABLE. PT HAD 2 ANXIETY EPISODES THIS AM, HYDROXYZINE ADMINISTERED. O2 SATS REMAINED > 95% ON RA, LS CLEAR/DIM IN THE BASES. LEFT ARM REMAINS EDEMATOUS, 3 SKIN TEARS ON LEFT ARM CLEANED AND DRESSING CHANGED. PT UP AND WALKING WITH STAFF, SOB NOTED AND PT HAD TO TAKE MULTIPLE BREAKS. PT EATING ONLY FOOD BROUGHT BY DAUGHTER. DAUGHTER AT BEDSIDE. Q1H VISUAL CHECKS. CALL LIGHT WITHIN REACH. FALL PRECAUTIONS IN PLACE
[2018-12-08 11:41] LABS: HEMATOCRIT 39.9 % (42.0-52.0); HEMOGLOBIN 12.9 gm/dL (14.0-18.0); MCH 34.5 pg (26.0-34.0); MCHC 32.4 g/dL (28.0-37.0); MCV 106.4 fL (80.0-100.0); RBC 3.75 mil/uL (4.50-6.00); RDW 18.4 % (10.5-14.5); WBC 7.3 thou/uL (4.0-11.0)
[2018-12-08 11:55] LABS: INR 2.8; PROTIME 29.2 Seconds (9.3-11.4)
[2018-12-08 14:00] VITALS: BP 116/65
[2018-12-08 19:49] VITALS: BP 113/55
--- NOTE | 2018-12-09 02:42 | NUR ---
ASSUMED CARE AT START OF SHIFT PT UP WITH WALKER STANDBY ASSIST , RETURNED FROM BATHROOM ASSISTED TO [facility] CARE GIVEN PO MEDICATION TAKEN , REFUSED STOOL SOFETNER AND MIRLAX , PT HAD LARGE STOOL. VOIDING PER URINAL , SLIGHT DYSNEA NOTED WITH EXERTION. DISCUSSED CURRENT PLAN OF CARE, PT AND DAUGHETR AGREEABLE. PT RESTED WELL THROUGHOUT HOURLY ROUNDS.
[2018-12-09 05:37] LABS: HEMATOCRIT 38.6 % (42.0-52.0); HEMOGLOBIN 12.5 gm/dL (14.0-18.0); MCH 34.3 pg (26.0-34.0); MCHC 32.5 g/dL (28.0-37.0); MCV 105.7 fL (80.0-100.0); RBC 3.65 mil/uL (4.50-6.00); RDW 18.5 % (10.5-14.5); WBC 4.6 thou/uL (4.0-11.0)
[2018-12-09 05:51] LABS: INR 2.8; PROTIME 28.7 Seconds (9.3-11.4)
[2018-12-09 06:05] LABS: CALCIUM 7.9 mg/dL (8.5-10.1); CREATININE 1.6 mg/dL (0.7-1.3); MAGNESIUM 1.9 mg/dL (1.8-2.4)
[2018-12-09 07:45] VITALS: BP 101/51
--- NOTE | 2018-12-09 10:44 | NUR ---
ASSUMED PT CARE AT 0700. ASSESSMENT IS CHARTED. PT UP IN CHAIR AT THIS TIME. ALERT/ORIENED X4. DENIES PAIN. OXYGEN REMOVED PT IS DISCHARGING TODAY AND DID NOT QUALIFY FOR HOME O2. WILL RECHECK SAT. EDEMA NOTED TO LEFT ARM AND BILATERAL LOWER EXTREMITIES. OTHERWISE NO NEW ISSUES. NOTIFIED SOCIAL WORK OF THE QUESTIONS PT AND DAUGHTER HAD REGARDING DISMISSAL. ALSO NOTIFIED SENIOR PRICING ANALYST OF CONCERNS WELL. WILL CONTINUE WITH CURRENT CARE ORDERED.
[2018-12-09 11:27] LABS: ALBUMIN 2.2 g/dL (3.4-5.0); DIRECT BILIRUBIN 0.6 mg/dL (<0.1-0.3); TOTAL BILIRUBIN 1.1 mg/dL (<0.1-1.0); TOTAL PROTEIN 5.2 g/dL (6.4-8.2)
[2018-12-09 13:05] VITALS: BP 106/61
[2018-12-09] MEDS ORDERED: VOLTAREN100 GM TOP (13:14)
[2018-12-09] MEDS ORDERED: VITAMIN D2000 UNIT PO (13:14)
[2018-12-09] MEDS ORDERED: COUMADIN 2 MG TA2 M1 PO ×2 (13:14→13:50)
[2018-12-09] MEDS ORDERED: COLACE100 MG PO (13:14)
[2018-12-09] MEDS ORDERED: VITAMIN B-12500 MCG PO (13:14)
[2018-12-09] MEDS ORDERED: HYDROXYZINE HCL25 M2 PO (13:14)
[2018-12-09] MEDS ORDERED: MIRALAX17 GM PO (13:14)
[2018-12-09] MEDS ORDERED: LIDOPATCH1 EACH TRANSDERM (13:14)
[2018-12-09] MEDS ORDERED: REMERON15 MG PO (13:14)
[2018-12-09] MEDS ORDERED: VENTOLIN HFA 1818 GM INH (13:16)
--- NOTE | 2018-12-09 13:48 | NUR ---
PT IS TO DISCHARGE HOME THIS DAY. CM SPOKE WITH PT'S DTR WILL AND CARE TEAM. PT IS TO HAVE [facility]. PT WAS ISSUED A FRONT WHEELED WALKER FOR HOME USE. NO OTHER CM INTERVENTION INDICATED AT THIS TIME. CASE CLOSED.
[2018-12-09 14:33] VITALS: BP 106/61
--- NOTE | 2018-12-09 15:04 | NUR ---
DISMISSED PT IN STABLE CONDITION VIA WHEELCHAIR WITH FAMILY. IV REMOVED.
--- NOTE | 2018-12-09 16:50 | NUR ---
PT. DISCHARGING TODAY TO HOME WITH [facility]. FAXED DC ORDERS/SUMMARY TO [facility] SPOKE WITH PAMELA IN ADM AND SHE RECEIVED DC ORDERS. THEY WILL NOTIFY PT. OF TIME OF VISITS.
--- NOTE | 2018-12-12 11:23 | H ---
[facility] [place] [address] HISTORY AND PHYSICAL Name: CORBIN NAVARRO Room #: 503-P [facility] IN M.R.#: [id number] Admission: 11/29/18 Attend Phys: Tyler Francois MD Discharge: 12/09/18 Date of : 42 Report #: [id number] THIS REPORT FOR: //name// CC: Tyler Chengyandel DATE OF SERVICE: 11/29/2018 HISTORY AND PHYSICAL/POST-ADMISSION PHYSICAL EVALUATION HISTORY OF PRESENT ILLNESS: The patient is a 78-year-old white male who had the onset of back pain originally when he was trying to get out of bed and had a fall. He was diagnosed with an L4 vertebral fracture. He is on Coumadin and has a prior mitral valve replacement and initially was felt that a vertebroplasty was precluded. His course was complicated by acute renal insufficiency. He was seen by Dr. Daniel in consultation with the continued back home making it difficult for him for basic functional mobility issues. His Coumadin was held until his INR was normalized. He was maintained on Lovenox and he then underwent a vertebroplasty earlier today. He is to restart the Lovenox again tomorrow. His symptoms have definitely improved post-vertebroplasty, but he still has significant functional mobility and ADL deficits and has now been admitted for an acute in-hospital inpatient rehabilitation stay. PAST MEDICAL HISTORY: Includes mitral valve replacement with coronary artery bypass grafting in 1995. He had a cardiac arrest at that time. He has had a history of constrictive pericarditis and underwent pericardectomy in 1996. He has had approximately 5 episodes of atrial fibrillation with cardioversions. He had a pacemaker placed in 2004, history of CHF, severe cardiomyopathy, idiopathic dilated atrium, chronic anticoagulation, and pulmonary fibrosis. ALLERGIES: ADHESIVE, VANCOMYCIN, LEVOFLOXACIN, PENICILLIN, SPIRONOLACTONE. HABITS: Former tobacco user. Alcohol use, no history. SOCIAL HISTORY: Lives in a house with , 2 steps in. He was premorbidly independent without gait aids. They do have a stair glide in the house itself. He was active getting out in the community going to regular breakfast with other retirees. There is a daughter who is in the area and supportive. REVIEW OF SYSTEMS: Notes that his back pain had improved. No chest pain, shortness of breath, or abdominal discomfort. No specific focal extremity radicular type pain. PHYSICAL EXAMINATION: GENERAL: A 78-year-old white male, in no obvious distress. He was alert and [facility] [address] [place] [address] HISTORY AND PHYSICAL Name: CORBIN NAVARRO Room #: 503-P [facility]#: [id number] Admission: 11/29/18 Attend Phys: Tyler Francois MD Discharge: 12/09/18 Date of : 42 Report #: [id number] pleasant. VITAL SIGNS: Last recorded temperature 97.3, pulse 60, respirations 19, blood pressure 103/48. HEENT: Appeared to be benign. Cranial nerves are grossly intact. Facies are symmetric. CHEST: Sounded clear to auscultation. CARDIOVASCULAR: Regular rate and rhythm. ABDOMEN: Bowel sounds positive, nontender. GENITOURINARY AND RECTAL: Deferred. EXTREMITIES: Functional range of motion of the upper extremities. Strength is grade 4-/5. DTRs are trace to 1. Lower extremities functional range of motion, strength is grade 3+ to 4-/5. DTRs are trace to 1. He is min assist with basic functional mobility skills and short distance ambulation. Daughter has noted that the patient's gait is significantly more unsteady than prior to hospital admission. ASSESSMENT: A 78-year-old white male with the following problems: 1. Multifactorial gait instability. 2. Fall with L4 vertebral compression fracture. He underwent a vertebroplasty earlier today. 3. Chronic anticoagulation with restarting anticoagulation as per Interventional Radiology and Internal Medicine. 4. Acute renal insufficiency. 5. Severe cardiomyopathy. 6. History of pericardectomy x 2. 7. Prior history of mitral valve replacement with coronary artery bypass grafting. 8. History of pulmonary fibrosis. PLAN: The patient is admitted for acute in-hospital inpatient rehabilitation. From a post-admission physician evaluation perspective, there are no relevant changes since the preadmission screening. Please see the above review of prior and current medical and functional conditions and comorbidities. Please see the patient's previous and current functional status. As far as risk of complications, the patient has multiple medical comorbidities as noted above. He has been reminded that he needs to ask for assistance when getting up. Initial plan of care involves the interdisciplinary acute inpatient rehabilitation program with goal of maximizing his functional independence, so he can hopefully return back to his prior living situation. Measurable functional goals would be for the patient to become modified independent with transfers, mobility, ADLs, so that he can hopefully return back to his prior living situation. Prognosis is reasonably good with estimated length of stay probably at least 10 days pending progress. Potential barriers would include his multiple medical comorbidities and decreased functional status. The patient meets diagnostic criteria for an acute in-hospital inpatient [facility] [address] [place] [address] HISTORY AND PHYSICAL Name: CORBIN NAVARRO Room #: 503-P [facility] IN M.R.#: [id number] Admission: 11/29/18 Attend Phys: Tyler Francois MD Discharge: 12/09/18 Date of : 42 Report #: [id number] rehabilitation stay. He meets the medical necessity criteria and he will have the payroll consultant physicians continue to follow. He does have the tolerance for therapies and has appropriate discharge goals back to the home setting. <ELECTRONICALLY SIGNED> By: Tyler Francois MD 12/12/18 1123 2105 2139 Tyler Francois MD /[facility]
--- NOTE | 2018-12-12 11:23 | PLAN ---
[facility] [place] [address] REHAB UNIT PLAN OF CARE Name: CORBIN NAVARRO Room #: 503-P [facility] IN M.R.#: [id number] Admission: 11/29/18 Attend Phys: Tyler Francois MD Discharge: 12/09/18 Date of : 42 Report #: [id number] THIS REPORT FOR: //name// CC: [facility] DATE OF SERVICE: 11/30/2018 PROGRESS NOTE/OVERALL PLAN OF CARE SUBJECTIVE: The patient was seen earlier. He has been in no distress. Last recorded temperature 97.5, pulse 59, respirations 14, blood pressure 110/56. He has been working in therapies and overall has felt that the pain is better post-vertebroplasty. Toilet transfers are noted to be min assist in occupational therapy with lower body dressing max assist. He needs assist to don and doff socks. He does have somewhat limited endurance. ASSESSMENT: 1. Multifactorial gait instability. 2. Fall with L4 vertebral compression fracture. He underwent vertebroplasty earlier. 3. Chronic anticoagulation. 4. Acute renal insufficiency. 5. Severe cardiomyopathy. 6. History of pericardectomy. 7. Prior history of mitral valve replacement with coronary artery bypass grafting. 8. History of pulmonary fibrosis. PLAN: The overall plan of care is based on the preadmission screen, post-admission physician evaluation, and information garnered from therapy assessments. 1. Estimated length of stay is probably 10 days to 2 weeks. 2. Medical prognosis is reasonably good. 3. Anticipated interventions include the interdisciplinary acute inpatient rehabilitation program with the goal of maximizing his functional independence so he can hopefully return back to his prior living situation. 4. Anticipated functional outcomes would include becoming modified independent ideally without gait aids as he was before, but will need to see how he does. At this point, modified independent at a walker level with ability to do his own ADLs. 5. Discharge destination would be back to the home setting where he lives in a house with his . He does have involved family. [address] [address] REHAB UNIT PLAN OF CARE Name: CORBIN NAVARRO Room #: 503-P [facility] IN M.R.#: [id number] Admission: 11/29/18 Attend Phys: Tyler Francois MD Discharge: 12/09/18 Date of : 42 Report #: [id number] 6. Expected therapy by discipline includes PT and OT 1-1/2 hours per day each 5 days a week throughout the duration of the acute inpatient rehabilitation stay. <ELECTRONICALLY SIGNED> By: Tyler Francois MD 12/12/18 1123 [id number] 2207 Tyler Francois MD /nt
== END 2018-12-09 15:31 | disposition home health service (06) | DRG 552 ==
LOC: ENTRNSPT 12-09 14:57 → EDTRNSPTSTS 12-09 15:13
PROVIDERS: Internal Medicine; Nurse Practitioner; ADMIT Physical Medicine & Rehabilitation
DX: S32.049A Unspecified fracture of fourth lumbar vertebra, initial encounter for closed fracture (principal); I42.9 Cardiomyopathy, unspecified; N17.9 Acute kidney failure, unspecified; E44.0 Moderate protein-calorie malnutrition; J84.10 Pulmonary fibrosis, unspecified; F43.29 Adjustment disorder with other symptoms; I48.91 Unspecified atrial fibrillation; I50.9 Heart failure, unspecified; R26.9 Unspecified abnormalities of gait and mobility; W06.XXXA Fall from bed, initial encounter; F41.9 Anxiety disorder, unspecified; R11.0 Nausea; E55.9 Vitamin D deficiency, unspecified; E53.8 Deficiency of other specified B group vitamins; G47.33 Obstructive sleep apnea (adult) (pediatric); I27.20 Pulmonary hypertension, unspecified; M75.102 Unspecified rotator cuff tear or rupture of left shoulder, not specified as traumatic; I25.10 Atherosclerotic heart disease of native coronary artery without angina pectoris; K21.9 Gastro-esophageal reflux disease without esophagitis; E03.9 Hypothyroidism, unspecified; R00.0 Tachycardia, unspecified; R53.81 Other malaise; Z79.01 Long term (current) use of anticoagulants; Z95.2 Presence of prosthetic heart valve; Z95.1 Presence of aortocoronary bypass graft; Z86.74 Personal history of sudden cardiac arrest; Z95.0 Presence of cardiac pacemaker; Z88.0 Allergy status to penicillin; Z88.1 Allergy status to other antibiotic agents; Z91.048 Other nonmedicinal substance allergy status; Z87.891 Personal history of nicotine dependence; Y93.89 Activity, other specified; Y92.092 Bedroom in other non-institutional residence as the place of occurrence of the external cause; Y99.8 Other external cause status; Z68.27 Body mass index [BMI] 27.0-27.9, adult
CPT/HCPCS: 10112

== ENCOUNTER → 2018-12-27 | Outpatient (CLI) | payer OTHER, MEDICARE ==
[~2018-12-27] MED LIST changes: +COLACE100 MG PO; +COUMADIN 2 MG TA2 M1 PO; +HYDROXYZINE HCL25 M2 PO; +LIDOPATCH1 EACH TRANSDERM; +MIRALAX17 GM PO; +REMERON15 MG PO; +VENTOLIN HFA 1818 GM INH; +VITAMIN B-12500 MCG PO; +VITAMIN D2000 UNIT PO; +VOLTAREN100 GM TOP
== END ==
LOC: RAD 08:28
DX: M47.815 Spondylosis without myelopathy or radiculopathy, thoracolumbar region (principal); M85.88 Other specified disorders of bone density and structure, other site; M19.011 Primary osteoarthritis, right shoulder; M19.012 Primary osteoarthritis, left shoulder; M18.4 Other bilateral secondary osteoarthritis of first carpometacarpal joints; J92.9 Pleural plaque without asbestos; Z98.890 Other specified postprocedural states

== ENCOUNTER → 2019-04-14 | Outpatient (CLI) | payer OTHER, MEDICARE | LOC: RAD 12:40 | DX: M81.0 Age-related osteoporosis without current pathological fracture (principal); M54.5 Low back pain ==

== ENCOUNTER → 2019-04-17 | Outpatient (CLI) | payer OTHER, MEDICARE | LOC: NUC 09:47 | DX: M19.011 Primary osteoarthritis, right shoulder (principal); M19.012 Primary osteoarthritis, left shoulder; M54.5 Low back pain; Z98.890 Other specified postprocedural states ==

== ENCOUNTER → 2019-04-24 | Outpatient (CLI) | payer OTHER, MEDICARE | LOC: RAD 15:30 | DX: I51.7 Cardiomegaly (principal) ==

== ENCOUNTER → 2019-05-06 | Outpatient (CLI) | payer OTHER, MEDICARE ==
[~2019-05-06] MED LIST changes: +DEMADEX20 MG PO; +EPLERENONE25 MG PO; +PRINIVIL5 MG PO
== END ==
LOC: NUC 10:00
DX: Z13.820 Encounter for screening for osteoporosis (principal); M48.56XA Collapsed vertebra, not elsewhere classified, lumbar region, initial encounter for fracture; M10.061 Idiopathic gout, right knee; M17.11 Unilateral primary osteoarthritis, right knee; M25.461 Effusion, right knee; M25.561 Pain in right knee

== ENCOUNTER 2019-05-12 11:39 | Emergency (ER) | payer OTHER, MEDICARE ==
[~2019-05-12] VITALS: Ht 172.7 cm; Wt 78.9 kg
[~2019-05-12 11:39] MED LIST changes: -DEMADEX20 MG PO; -EPLERENONE25 MG PO; -PRINIVIL5 MG PO
[2019-05-12] MEDS ORDERED: DEMADEX20 MG PO (11:59)
[2019-05-12] MEDS ORDERED: EPLERENONE25 MG PO (11:59)
[2019-05-12] MEDS ORDERED: PRINIVIL5 MG PO (12:00)
[2019-05-12 13:12] LABS: ABSOLUTE NEUTROPHILS 4.5 thou/uL (1.4-8.2); BASOPHILS 0.6 % (0.0-2.0); EOSINOPHILS 4.5 % (0.0-3.0); HEMATOCRIT 39.7 % (42.0-52.0); LYMPHOCYTES 9.1 % (24.0-44.0); MCH 33.5 pg (26.0-34.0); MCHC 32.7 g/dL (28.0-37.0); MCV 102.3 fL (80.0-100.0); MONOCYTES 8.6 % (1.0-8.0); PLATELET COUNT 186 thou/uL (150-400); POLYS 77.2 % (36.0-66.0); RBC 3.88 mil/uL (4.50-6.00); RDW 15.6 % (10.5-14.5); WBC 5.8 thou/uL (4.0-11.0)
[2019-05-12 13:16] LABS: ANION GAP 6 mmol/L (7-16); BUN 28 mg/dL (7-18); CHLORIDE 102 mmol/L (98-107); CO2 28 mmol/L (21-32); CREATININE 1.2 mg/dL (0.7-1.3); GLUCOSE 102 mg/dL (74-106); SODIUM 136 mmol/L (136-145)
[2019-05-12 13:24] LABS: MAGNESIUM 1.9 mg/dL (1.8-2.4); TROPONIN-I <0.06 ng/mL (<0.06)
[2019-05-12 14:05] VITALS: BP 98/51
--- NOTE | 2019-05-13 07:33 | EKG ---
[place] [address] [place] [address] ELECTROCARDIOGRAM REPORT Name: CORBIN NAVARRO [facility] [id number] ������������������ Admission: 05/12/19 ������������������ Attend Phys: Discharge: 05/12/19 ������������������ Date of : 42 Report #: [id number] ����������������������������������������������������������������� [id number] THIS REPORT FOR: //name// [facility] ED Test Date: 2019-05-12 Test Time: 12:47:51 Pat Name: CORBIN NAVARRO Department: Room: Gender: Parking Ramp Attendant: JLAMBERTZ : 1940 Requested By: Beltran Abernathy Order Number: [id number] MD: Uriel Nix Measurements Intervals [place] Rate: 60 P: 0 OR: 81 QRS: 242 QRSD: 169 T: 86 QT: 552 QTc: 552 Interpretive Statements Ventricular-paced rhythm No further analysis attempted due to paced rhythm Compared to ECG 11/24/2018 11:56:18 no significant change was found Electronically Signed On 05-13-2019 7:33:26 CDT by Uriel Nix [email or web address] ��������������������������������������������� <ELECTRONICALLY SIGNED> ���������������������������������������� By: Uriel Nix MD, [facility] ��������������������������������������������� 05/13/19 0733 [id number] Uriel Nix MD, FAC /EPI
== END 2019-05-12 14:05 | disposition home or self-care (01) ==
LOC: ER 11:39
PROVIDERS: Emergency Medicine
DX: S51.011A Laceration without foreign body of right elbow, initial encounter (principal); K21.9 Gastro-esophageal reflux disease without esophagitis; I48.91 Unspecified atrial fibrillation; I50.9 Heart failure, unspecified; Z88.1 Allergy status to other antibiotic agents; Z88.0 Allergy status to penicillin; Z88.8 Allergy status to other drugs, medicaments and biological substances; Z87.891 Personal history of nicotine dependence; Z95.1 Presence of aortocoronary bypass graft; Z90.49 Acquired absence of other specified parts of digestive tract; W01.0XXA Fall on same level from slipping, tripping and stumbling without subsequent striking against object, initial encounter; Y93.89 Activity, other specified; Y92.89 Other specified places as the place of occurrence of the external cause; Y99.8 Other external cause status

== ENCOUNTER 2019-07-30 13:39 | Inpatient (IN) | payer OTHER, MEDICARE ==
[~2019-07-30] VITALS: Ht 177.8 cm; Wt 81.6 kg
[2019-07-30 13:39] VITALS: BP 98/47
[~2019-07-30 13:39] MED LIST changes: +DEMADEX20 MG PO; +EPLERENONE25 MG PO; +PRINIVIL5 MG PO
[2019-07-30 14:36] LABS: ABSOLUTE NEUTROPHILS 4.4 thou/uL (1.4-8.2); BASOPHILS 0.7 % (0.0-2.0); EOSINOPHILS 4.3 % (0.0-3.0); HEMATOCRIT 36.5 % (42.0-52.0); HEMOGLOBIN 11.8 gm/dL (14.0-18.0); LYMPHOCYTES 10.3 % (24.0-44.0); MCH 34.6 pg (26.0-34.0); MCHC 32.5 g/dL (28.0-37.0); MCV 106.4 fL (80.0-100.0); PLATELET COUNT 186 thou/uL (150-400); POLYS 76.7 % (36.0-66.0); RBC 3.43 mil/uL (4.50-6.00); RDW 18.6 % (10.5-14.5); WBC 5.7 thou/uL (4.0-11.0)
[2019-07-30 14:45] LABS: ANION GAP 7 mmol/L (7-16); BUN 35 mg/dL (7-18); CHLORIDE 107 mmol/L (98-107); CO2 26 mmol/L (21-32); CREATININE 1.4 mg/dL (0.7-1.3); GLUCOSE 96 mg/dL (74-106); POTASSIUM 3.9 mmol/L (3.5-5.1); SODIUM 140 mmol/L (136-145)
[2019-07-30 14:55] LABS: ALBUMIN 2.8 g/dL (3.4-5.0); SGOT 98 U/L (15-37); SGPT 62 U/L (30-65); TOTAL BILIRUBIN 0.9 mg/dL (<0.1-1.0); TOTAL PROTEIN 6.1 g/dL (6.4-8.2); TROPONIN-I <0.06 ng/mL (<0.06)
[2019-07-30 15:23] LABS: ANISOCYTOSIS 1+; MACROCYTES 2+; PLATELET ESTIMATE NORMAL
[2019-07-30 15:34] LABS: CHOLESTEROL 111 mg/dL (<200); HDL CHOLESTEROL 29 mg/dL (>40); LDL CHOLESTEROL 63 mg/dL (<100); SERUM ASSESSMENT Clear; TC:HDL 3.8 Ratio (Not establshd); TRIGLYCERIDE 95 mg/dL (<150); VLDL 19 mg/dL (<40)
[2019-07-30 15:45] LABS: INR 4.2; PROTIME 43.5 Seconds (9.3-11.4)
[2019-07-30 16:10] VITALS: BP 98/47
[2019-07-30 17:20] VITALS: BP 103/54
[2019-07-30 17:59] VITALS: BP 104/53
--- NOTE | 2019-07-30 19:19 | NUR ---
PATIENT ARRIVED FROM ED AT 1750, ALERT AND PRIENTED X4. ADMISSION COMPLETED. AND POC INTITIATED.
[2019-07-30 20:23] VITALS: BP 99/53
[2019-07-30 21:29] VITALS: BP 96/60
[2019-07-31] MEDS ORDERED: FOSAMAX 70 MG T70 MG PO (00:53)
[2019-07-31] MEDS ORDERED: METAMUCIL1 EAC1 PO (00:59)
[2019-07-31 01:20] VITALS: BP 103/61
--- NOTE | 2019-07-31 04:17 | NUR ---
RECEIVED PT'S CARE AT 1930; PT. ON BED; AOX4; DURING ASSESSMENT NO C/O PAIN; ST. SOB WITH EXERTION; O2 SAT ABOVE 95%; SBP ON THE 90s; PT. ST. SBP USUALLY ON THE 90s; LAXIS GIVEN; PT. DID NOT RECONIGZED HS PO MEDICATION NAME; HOME MEDICATIONS CHECKED AGAINTS CURRENT MEDICATION LIST; MED. REC. NOT UPDATE DURING ADMISSION; REFUSED MEDICATION; MED. REC. LIST UPDATED; ABLE TO REST THROUGH THE NIGHT WITH EYES CLOSED; VS WNL; MONITORING; ASSESSMENT CHARGED; FOLLOWING POC; WILL PASS ON REPORT.
[2019-07-31 04:50] LABS: INR 3.9; PROTIME 40.5 Seconds (9.3-11.4)
[2019-07-31 05:52] LABS: ALBUMIN 2.5 g/dL (3.4-5.0); ANION GAP 10 mmol/L (7-16); BUN 31 mg/dL (7-18); CALCIUM 7.6 mg/dL (8.5-10.1); CHLORIDE 109 mmol/L (98-107); CO2 24 mmol/L (21-32); CREATININE 1.2 mg/dL (0.7-1.3); GLUCOSE 82 mg/dL (74-106); PHOSPHORUS 2.7 mg/dL (2.5-4.9); POTASSIUM 3.3 mmol/L (3.5-5.1); SODIUM 143 mmol/L (136-145); TROPONIN-I <0.06 ng/mL (<0.06)
[2019-07-31 06:02] VITALS: BP 102/50
[2019-07-31 08:20] VITALS: BP 100/54
--- NOTE | 2019-07-31 08:25 | EKG ---
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 : 1940 Requested By: Zuhair Coronel Order Number: [id number] MD: Uriel Nix Measurements Intervals [place] Rate: 60 P: 0 MN: 87 QRS: 258 QRSD: 167 T: 87 QT: 561 QTc: 561 Interpretive Statements Ventricular-paced rhythm No further analysis attempted due to paced rhythm Baseline wander in lead(s) V3 Compared to ECG 05/12/2019 12:47:51 No significant changes Electronically Signed On 07-31-2019 8:24:49 CDT by Uriel Nix [email or web address] ��������������������������������������������� <ELECTRONICALLY SIGNED> ���������������������������������������� By: Uriel Nix MD, [facility] ��������������������������������������������� 07/31/19823 1345 1345 Urile Nix MD, [facility] /EPI
--- NOTE | 2019-07-31 08:53 | NUR ---
PATIENT CARE ASSUMED, ASSESSMENT CHARTED, ALERT AND ORIENTED X4, NO COMPLAINTS OF PAIN, PATIENT UP IN CHAIR FOR BREAKFAST, WILL CONTINUE TO MONITOR
[2019-07-31 12:47] VITALS: BP 86/55
[2019-07-31 16:00] VITALS: BP 94/48
[2019-07-31 19:18] VITALS: BP 99/61
[2019-08-01 04:23] LABS: HEMATOCRIT 35.1 % (42.0-52.0); HEMOGLOBIN 11.4 gm/dL (14.0-18.0); MCH 34.5 pg (26.0-34.0); MCHC 32.6 g/dL (28.0-37.0); MCV 105.8 fL (80.0-100.0); RBC 3.31 mil/uL (4.50-6.00); RDW 18.4 % (10.5-14.5); WBC 4.6 thou/uL (4.0-11.0)
[2019-08-01 04:27] LABS: INR 3.8; PROTIME 38.9 Seconds (9.3-11.4)
[2019-08-01 04:28] LABS: CREATININE 1.1 mg/dL (0.7-1.3); POTASSIUM 3.3 mmol/L (3.5-5.1)
--- NOTE | 2019-08-01 04:38 | NUR ---
PT HAS RESTED WELL THROGHOUT THE SHIFT. VPACED ON THE MONITOR. PT REMAINS ON RA. AMBULATED WELL FROM BED TO THE RESTROOM TO VOID. AM LABS TO BE DRAWN AND REVIEWED.
[2019-08-01 04:45] VITALS: BP 114/53
[2019-08-01 07:40] VITALS: BP 103/58
[2019-08-01 12:47] VITALS: BP 94/49
[2019-08-01 13:38] VITALS: BP 103/59
[2019-08-01 17:12] VITALS: BP 114/61
--- NOTE | 2019-08-01 18:22 | NUR ---
ASSUMED CARE AROUND 0700. ERROL4. GENEVIEVE AT BEDSIDE. EXTRA LASIX TODAY PER CARDIOLOGY. VSS. PER , PT WILL BE DISCHAEGING SUNDAY OR SUNDAY. NO S/S ACUTE DISTRESS NOTED OR REPORTED AT THIS TIME. WILL CONT TO MONITOR FOR ANY CHAGES IN CONDITION.
[2019-08-01 20:00] VITALS: BP 91/50
[2019-08-02 04:45] VITALS: BP 108/55
[2019-08-02 05:42] LABS: INR 3.1; PROTIME 32.3 Seconds (9.3-11.4)
[2019-08-02 05:48] LABS: CALCIUM 8.3 mg/dL (8.5-10.1); CREATININE 1.1 mg/dL (0.7-1.3); POTASSIUM 3.7 mmol/L (3.5-5.1)
--- NOTE | 2019-08-02 06:57 | NUR ---
ASSUMED CARE OF PT @1900 PT ASSESSED AT START OF SHIFT A&O X4. DENIES PAIN, BRAUN, N, V. DTR AT BEDSIDE. EVENING BP WITH HELD DUE TO LOW BP. PT ON LASIX. UP AD FINA TO THE BTR. WILL CONT TO MONITOR TILL EOS
[2019-08-02 08:00] VITALS: BP 103/52
[2019-08-02 12:00] VITALS: BP 92/51
[2019-08-02 16:00] VITALS: BP 95/55
--- NOTE | 2019-08-02 19:48 | NUR ---
ASSUMED CARE OF PATIENT AT 0700. ASSESSMENTS CHARTED. PATIENT IS AMBULATING THE HALLWAYS WITH HIS DAUGHTER HOURLY. HE INTERMITTENT GETS SHORT OF AIR WITH INCREASED AMBULATION OR IF HE IS LAYING DOWN AT LESS THAN 30 DEGREES. PATIENT IS FOLLOWING NURSING POC.
[2019-08-02 20:10] VITALS: BP 83/48
[2019-08-02 22:15] VITALS: BP 100/66
[2019-08-03 01:53] VITALS: BP 100/66
--- NOTE | 2019-08-03 04:28 | NUR ---
ASSUMED PT CARE AT 1900. BP HYPOTENSIVE AND ASYMPTOMATIC. CONTACT MEDICAL REFERRAL COORDINATOR AND GOT PARAMETERS SET FOR MEDICATIONS. PT WALKED HALLWAY AND STEADY ON FEET. PT SLEPT THRU NIGHT. WILL CONTINUE TO MONITOR PER POC.
[2019-08-03 04:46] VITALS: BP 99/61
[2019-08-03 05:19] LABS: INR 2.8
[2019-08-03 07:52] VITALS: BP 95/55
[2019-08-03 11:41] VITALS: BP 91/49
--- NOTE | 2019-08-03 15:25 | NUR ---
PT ALERT AND ORIENTED. PT HAD LOW BP THIS SHIFT. DR. CACERES AWARE. ORDERS NOTED. PT AMBULATED X4 THIS SHIFT. DAUGHTER AT THE BEDSIDE. WILL CONTINUE TO MONITOR.
[2019-08-03 16:11] VITALS: BP 98/50
[2019-08-03 20:24] VITALS: BP 101/52
[2019-08-04 01:28] VITALS: BP 101/52
[2019-08-04 03:20] VITALS: BP 103/56
--- NOTE | 2019-08-04 04:20 | NUR ---
ASSESSMENT CHARTED. VSS. LOW BP, ASYMPTOMATIC. DAUGHTER WALKS WITH WALKER IN HALLS STEADY. PT DENIES PAIN, SOA, N/V, DIZZINESS. C/O DRY COUGH SORE THROAT PRIVACY DIRECTOR NOTIFIED, ORDERS RECIEVED. THROAT SPRAY PER EMAR PRN. LUNGS CLEAR ABOVE, LOWER LEFT LOBE FINE CRACKLES, GOOD COUGH SMALL AMOUNTS OF CLEAR THIN SPUTUM. WILL CONTINUE TO MONITOR AND WITH POC
[2019-08-04 05:39] LABS: INR 2.4; PROTIME 24.8 Seconds (9.3-11.4)
[2019-08-04 07:41] VITALS: BP 96/49
[2019-08-04] MEDS ORDERED: K-DUR 20 MEQ T20 MEQ PO (08:07)
[2019-08-04] MEDS ORDERED: COZAAR 25 MG TA25 M1 PO (08:07)
[2019-08-04] MEDS ORDERED: CARVEDILOL3.125 MG PO (08:07)
[2019-08-04] MEDS ORDERED: DEMADEX20 MG PO (08:07)
[2019-08-04 09:52] VITALS: BP 103/56
[2019-08-04 12:33] VITALS: BP 88/49
[2019-08-04] MEDS ORDERED: COUMADIN 2 MG TA2 M1 PO (13:03)
[2019-08-04 13:55] VITALS: BP 103/56
--- NOTE | 2019-08-05 13:19 | HC ---
[facility] [place] [address] CONSULTATION Name: CORBIN NAVARRO Room #: 211-P [facility] IN ..#: [id number] Admission: 07/30/19 ������������������ Attend Phys: Froy Panda Discharge: 08/04/19 ������������������ Date of : 42 Report #: [id number] THIS REPORT FOR: //name// CC: Froy Padilla DATE OF SERVICE: 08/04/2019 CONSULTING PHYSICIAN: Dr. Rowan. REASON FOR CONSULTATION: Hypothyroidism. HISTORY OF PRESENT ILLNESS: This is a 79-year-old male patient who was admitted on 07/30/2019 with complaints of progressive shortness of breath in the setting of heart failure. The patient was admitted then for further management and monitoring. He did stabilize well, proved to have HFRF 15%, idiopathic cardiomyopathy and was placed on Coreg and diuretics. Also, he was found to deal with issues pertaining to atrial fibrillation and was placed on amiodarone and Coumadin. The patient's background is noted for hypothyroidism and upon admission he was recorded as taking levothyroxine 100 mcg daily. On further questioning to the patient, he was unable to identify the duration of this illness and acknowledged that his levothyroxine intake routine was somewhat inconsistent and ranged from taking it different times to taking it with and without food and occasions. The patient acknowledged that over the past few weeks he has felt increasingly tired and fatigued, but denies weight changes, skin changes or significant mood alterations. REVIEW OF SYSTEMS: CONSTITUTIONAL: Fatigue, tiredness, but no weight changes. HEENT: Negative for sinus pain, earache, ear drainage. PULMONARY: Noted for shortness of breath and occasional cough, but no hemoptysis. CARDIAC: Noted for dyspnea on exertion, lower extremity edema, no chest pain. GASTROINTESTINAL: Negative for abdominal pain, nausea, vomiting or changes in bowel movement frequency. UROLOGY: Negative for incontinence, dysuria or hematuria. NEUROLOGY: Negative for loss of consciousness, headaches or seizure activity. PSYCHIATRY: Negative for depression, hallucinations, delusions. Otherwise, review of systems noncontributory other than those mentioned in HPI. PAST MEDICAL HISTORY: Noted for: 1. Congestive heart failure. 2. Cardiomyopathy, unknown etiology. 3. Hypertension. [address] [address] CONSULTATION Name: CORBIN NAVARRO Room #: 211-P [facility] IN M.R.#: [id number] Admission: 07/30/19 ������������������ Attend Phys: Froy Panda Discharge: 08/04/19 ������������������ Date of : 42 Report #: [id number] 4. Atrial fibrillation. 5. Hypothyroidism. 6. Gout. 7. History of lumbar compression fracture, L4 fracture. 8. Plantar fasciitis. 9. Hyperlipidemia ALLERGIES: ADHESIVE TAPE, VANCOMYCIN, LEVOFLOXACIN, PENICILLIN AND SPIRONOLACTONE. ACTIVE MEDICATIONS: At home included levothyroxine 100 mcg daily, simvastatin 20 mg daily, omeprazole 20 mg b.i.d., carvedilol 25 mg b.i.d., allopurinol 300 mg daily, torsemide 20 mg daily, eplerenone 25 mg daily, lisinopril 5 mg daily. Now, he is on amiodarone 200 mg daily. FAMILY HISTORY: Noncontributory. SOCIAL HISTORY: The patient lives with his . Denies use of tobacco, alcohol or illicit drugs. PHYSICAL EXAMINATION: GENERAL: Pleasant, elderly male patient who is not in apparent distress, appears comfortable. VITAL SIGNS: Blood pressure is 88/49 mmHg, heart rate is 60 beats per minute, temperature 36.9 degrees Celsius, respirations 20 per minute. HEENT: Anicteric sclerae. Intact extraocular motions. NECK: Supple, without JVD, carotid bruits or lymphadenopathy. I do not appreciate thyromegaly. CHEST: Noted for moderate air entry bilaterally with scattered rales in bibasilar crackles. CARDIOVASCULAR: Heart is irregularly irregular rate and rhythm without murmurs or gallops. ABDOMEN: Slightly distended, but soft, lax, nontender, no guarding. EXTREMITIES: Lower extremity exam shows trace ankle edema bilaterally. No skin breaks. Pedal pulses are appreciated. NEUROLOGIC: Awake, alert and oriented to time, place and person. The remainder of his examination is nonfocal. PSYCHIATRIC: Normal mood and affect, appropriately interactive. SKIN: No ulceration or discoloration or other abnormalities noted. LABORATORY RESULTS: Glucose 151. Sodium 142, potassium 3.7, chloride 107, CO2 of 25, anion gap 10, BUN 25, creatinine 1.1, total bilirubin 0.9, calcium 8.3, phosphorus 2.7, uric acid 4.8, alkaline phosphatase 155, ALT 62, total protein 6.1, albumin 2.5, GFR 65. Lactic acid 3.3, total cholesterol 111, triglycerides 95, HDL 29 and LDL 63. BNP 4525. Free T4 1.5. TSH is 11.89, total T3 is low at 55. [facility] [address] [place] [address] CONSULTATION Name: CORBIN NAVARRO Room #: 211-P DIS IN M.R.#: [id number] Admission: 07/30/19 ������������������ Attend Phys: Froy Panda Discharge: 08/04/19 ������������������ Date of : 42 Report #: [id number] ASSESSMENT AND PLAN: 1. Hypothyroidism. The patient has a background that is known for longstanding hypothyroidism, although he was unable to provide exact details. His current thyroid function indices are remarkable for an elevated TSH along with just above normal free T4 as well. The patient's clinical status is mostly consistent with euthyroid state. Collectively, this is most likely consistent with an irregular mode of levothyroxine therapy intake be at the consistency of intake on a daily basis or the consistency of intake on an empty stomach to where absorption is ideal. I counseled the patient extensively on the importance of consistent levothyroxine intake as well as developing a consistent routine to where he would take it on an empty stomach and permit at least 30 minutes before he consumes food, so as to optimize the absorption of his LT4. The patient seemed to understand these variables fairly well and verbalizes much. I would refrain from increasing his levothyroxine dose on the basis of elevated TSH primarily because his free T4 is also elevated and I would rather have him maintain the current dose of 100 mcg daily and return for an outpatient evaluation in 4-6 weeks from now following a period of organized LT4 intake so as to have a better understanding of his therapeutic needs. The patient agrees with this plan. 2. Osteoporosis. The patient's history is noted for a lumbar vertebral compression fracture. I would advise that at some point, the patient pursues an evaluation for possible osteoporosis and engage in any necessary therapy based on those results. 3. Hyperlipidemia. The patient seems to be well controlled on the current lipid-lowering therapy. He is advised to continue with the same. 4. Hypertension. The patient's level of blood pressure control is excessive; however, his cardiac meds are being monitored and adjusted by the Cardiology team in the setting of active issues with atrial fibrillation and heart failure. I will defer this aspect of care to them. As always, I greatly appreciate Dr. Rowan's invitation to participate in the care of his patients. ��������������������������������������������� <ELECTRONICALLY SIGNED> ���������������������������������������� By: Petar Davis MD ��������������������������������������������� 08/05/19 1319 1323 0015 Petar Davis MD /nt
== END 2019-08-04 16:16 | disposition home or self-care (01) | DRG 291 ==
LOC: ER 13:39 → EROBS 15:16 → 2N 15:16 → ENTRNSPT 08-04 15:31 → EDTRNSPTSTS 08-04 15:33 → 2N 08-04 16:16
PROVIDERS: Emergency Medicine; Hospitalist; Nurse Practitioner Adult Health; ADMIT Hospitalist
PROC: 4B02XTZ Measurement of Cardiac Defibrillator, External Approach (ICD-10-PCS; principal; 2019-07-31)
DX: I11.0 Hypertensive heart disease with heart failure (principal); E43 Unspecified severe protein-calorie malnutrition; D68.59 Other primary thrombophilia; I50.23 Acute on chronic systolic (congestive) heart failure; I49.5 Sick sinus syndrome; I25.10 Atherosclerotic heart disease of native coronary artery without angina pectoris; I25.5 Ischemic cardiomyopathy; D53.9 Nutritional anemia, unspecified; K21.9 Gastro-esophageal reflux disease without esophagitis; I95.9 Hypotension, unspecified; M10.9 Gout, unspecified; I48.2 Chronic atrial fibrillation; J84.10 Pulmonary fibrosis, unspecified; E87.6 Hypokalemia; M81.0 Age-related osteoporosis without current pathological fracture; E78.5 Hyperlipidemia, unspecified; I65.29 Occlusion and stenosis of unspecified carotid artery; E03.9 Hypothyroidism, unspecified; I34.0 Nonrheumatic mitral (valve) insufficiency; Z79.899 Other long term (current) drug therapy; Z88.1 Allergy status to other antibiotic agents; Z88.0 Allergy status to penicillin; Z88.8 Allergy status to other drugs, medicaments and biological substances; Z91.048 Other nonmedicinal substance allergy status; Z95.1 Presence of aortocoronary bypass graft; Z90.49 Acquired absence of other specified parts of digestive tract; Z68.25 Body mass index [BMI] 25.0-25.9, adult; Z87.891 Personal history of nicotine dependence; Z95.810 Presence of automatic (implantable) cardiac defibrillator
CPT/HCPCS: 10081

== ENCOUNTER → 2019-08-28 | Outpatient (CLI) | payer OTHER, MEDICARE ==
[~2019-08-28] VITALS: Ht 177.8 cm; Wt 71.7 kg
[~2019-08-28] MED LIST changes: +CARVEDILOL3.125 MG PO; +COZAAR 25 MG TA25 M1 PO; +FOSAMAX 70 MG T70 MG PO; +K-DUR 20 MEQ T20 MEQ PO
[2019-08-28 07:50] VITALS: BP 118/58
[2019-08-28 08:18] LABS: HEMATOCRIT 31.6 % (42.0-52.0); HEMOGLOBIN 10.3 gm/dL (14.0-18.0); MCH 34.4 pg (26.0-34.0); MCHC 32.5 g/dL (28.0-37.0); MCV 105.8 fL (80.0-100.0); RBC 2.99 mil/uL (4.50-6.00); RDW 16.5 % (10.5-14.5); WBC 5.5 thou/uL (4.0-11.0)
[2019-08-28 08:27] LABS: CALCIUM 8.4 mg/dL (8.5-10.1); CREATININE 1.5 mg/dL (0.7-1.3); POTASSIUM 3.3 mmol/L (3.5-5.1)
[2019-08-28 08:30] LABS: INR 2.1; PROTIME 21.5 Seconds (9.3-11.4)
--- NOTE | 2019-08-28 12:54 | EKG ---
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[facility] : 1940 Requested By: Mani Damian Order Number: [id number] MD: Adam Araya Measurements Intervals [place] Rate: 60 P: 0 ID: 35 QRS: 245 QRSD: 177 T: 74 QT: 608 QTc: 608 Interpretive Statements Ventricular-paced rhythm No further analysis attempted due to paced rhythm Compared to ECG 07/30/2019 13:45:55 No significant changes Electronically Signed On 08-28-2019 12:53:54 CDT by Adam Araya [email or web address] <ELECTRONICALLY SIGNED> By: Adam Araya MD 08/28/19 1253 Adam Araya MD /ARIE
--- NOTE | 2019-09-02 12:36 | CATHLAB ---
[facility] [address] [place] [address] INVASIVE PROCEDURE REPORT Name: MELANIECORBIN CANNON Room #: REG Bernice#: [id number] Admission: 08/28/19 Attend Phys: Mani Damian, Discharge: Date of : 42 Report #: [id number] THIS REPORT FOR: //name// APPROVED REPORT Study performed: 08/28/2019 09:48:21 Patient Details Patient Status: Out-Patient Room #: The patient is a 79 year-old male Event Personnel Mani Damian Psychic Reader, Sinai Catalan RN RN, Anni Gonzales RTR Scrub, Deborah Rodriguez RTR Monitor, Tyler Grissom Monitor, Izabela Osorio RTR, CHANCELLOR Scrub Procedures Performed Art Access - R femoral artery* Billy Access - R femoral vein Left Heart Cath Coronaries, Bypass Grafts [id number] LHCCORCABG Renal Bilateral Peripheral Angiography [id number] CVRENALBIL 81897 Initial Mod Sed Same Phys/QHP Gr5y 551080 80678 Mod Sed Same Phys/QHP Ea 829205 Hemostasis with Manual pressure Hemostasis w/ Mynx Indication Chest pain Procedure Narrative The Right Groin^ was infiltrated with 1% Lidocaine subcutaneous anesthesia. A Right Heart Catheterization was performed with a 7 Fr. [facility]-Jul[facility] catheter and pressure were recorded. Cardiac outputs were obtained by the Thermal Dilution method. A PINNACLE 6FR Sheath #[id number] sheath was inserted into the RFA^. Coronary angiography was performed using coronary diagnostic catheters. The right coronary system was accessed and visualized with a JR4 catheter. The left coronary system was accessed and visualized with a JL4 catheter. The left ventricle was accessed and visualized with a pigtail catheter. Left ventriculogram was performed in 30 degree projection. Pre-demployment femoral angiogram was performed . Closure device was deployed with a Fr MYNXGRIP 6/7F #[id number]. Hemostasis was obtained with manual pressure following sheath removal without any complications. The patient tolerated the procedure well and there were no complications associated with the procedure. There was no hematoma. Intraoperative Conscious Sedation [address] [address] INVASIVE PROCEDURE REPORT Name: CORBIN NAVARRO Room #: REG Bernice#: [id number] Admission: 08/28/19 Attend Phys: Mani Damian, Discharge: Date of : 42 Report #: [id number] Sedation start time: 1014 Case end Time: 1057 Fentanyl 50 mcg Versed 1 mg Fluoro Time: 5.46 minutes Dose: DAP 6333.00 cGycm2 665 mGy Contrast Type and Amount: Visipaque 65 ml Hemodynamics The right atrial mean pressure is 16 mmHg. The right ventricular pressure is 21/8 mmHg. The pulmonary artery pressure is 55/-5 mmHg with a mean of 23 mmHg. The mean pulmonary capillary wedge pressure is 30 mmHg. The aortic pressure is 104/49 mmHg with a mean of 70 mmHg. The left ventricular pressure is 105/1 mmHg with a mean of mmHg. The left ventricular end diastolic pressure is 7 mmHg. The cardiac output using thermo method is 3.80 L/min. The cardiac index using thermo method is 2.01 L/min/m2. Conclusion #1 successful right heart catheterization with hemodynamics noted above in cardiac output by thermodilution. #2 mildly dilated left ventricle with mildly severe hypokinesis. EF 20% range #3 left main mildly disease and calcified giving rise to LAD and circumflex #4 the LAD extends to the apex moderately disease throughout the proximal mid vessel portion diffusely diseased to the apex #5 the OTERO either was not utilized for is atrophic vessel due to the patency of the LAD. #6 the right coronary is occluded at a previously placed stent. Mid vessel. #7 the SVG to the distal right PDA is intact is mildly ectatic but no occlusive disease and fills the PDA and DIAMOND which are relatively small but widely patent #8 the circumflex artery is patent nondominant mildly diseased there is a ramus branch was has an ostial is lesion of 70-80% but relatively small in distribution #9 selective bilateral renal artery angiogram reveals mild ostial disease Rectum indications and plan: Patient with significant elevation pulmonary pressures consistent with volume fluid overload. Severe LV [facility] [address] [place] [address] INVASIVE PROCEDURE REPORT Name: CORBIN NAVARRO Room #: REG LOLY Queen#: [id number] Admission: 08/28/19 Attend Phys: Mani Damian, Discharge: Date of : 42 Report #: [id number] dysfunction no indication for intervention 2 coronary anatomy as described above. Transfer to [facility] for further diuresis. <ELECTRONICALLY SIGNED> By: Mani Damian MD, FACC 09/02/19 1236 1236 123 Mani Damian MD, FACC /INF
== END | disposition home or self-care (01) ==
LOC: CATH 07:22
PROVIDERS: Internal Medicine Cardiovascular Disease
DX: R07.9 Chest pain, unspecified (principal); I25.10 Atherosclerotic heart disease of native coronary artery without angina pectoris; I70.1 Atherosclerosis of renal artery; I50.9 Heart failure, unspecified; I25.2 Old myocardial infarction; I42.9 Cardiomyopathy, unspecified; I48.21 Permanent atrial fibrillation; K21.9 Gastro-esophageal reflux disease without esophagitis; Z90.49 Acquired absence of other specified parts of digestive tract; Z95.1 Presence of aortocoronary bypass graft; Z95.0 Presence of cardiac pacemaker; Z79.899 Other long term (current) drug therapy; Z98.890 Other specified postprocedural states; Z79.01 Long term (current) use of anticoagulants; Z95.2 Presence of prosthetic heart valve

== ENCOUNTER → 2019-09-11 | Outpatient (CLI) | payer OTHER, MEDICARE | LOC: ULTRA 11:48 | DX: N28.1 Cyst of kidney, acquired (principal); J90 Pleural effusion, not elsewhere classified; Z88.0 Allergy status to penicillin; Z88.2 Allergy status to sulfonamides; Z90.49 Acquired absence of other specified parts of digestive tract ==

== ENCOUNTER → 2019-09-24 | Outpatient (CLI) | payer OTHER, MEDICARE | LOC: RAD 15:31 | DX: J98.4 Other disorders of lung (principal); J90 Pleural effusion, not elsewhere classified; I51.7 Cardiomegaly; Z95.0 Presence of cardiac pacemaker; Z88.8 Allergy status to other drugs, medicaments and biological substances; Z88.0 Allergy status to penicillin ==

== ENCOUNTER → 2019-12-15 | Outpatient (CLI) | payer OTHER, MEDICARE | LOC: SJCVCIMAG 12:18 | DX: I25.810 Atherosclerosis of coronary artery bypass graft(s) without angina pectoris (principal); I05.9 Rheumatic mitral valve disease, unspecified; E78.5 Hyperlipidemia, unspecified; I48.0 Paroxysmal atrial fibrillation; I42.9 Cardiomyopathy, unspecified; E78.00 Pure hypercholesterolemia, unspecified; D68.59 Other primary thrombophilia; I49.5 Sick sinus syndrome; G47.33 Obstructive sleep apnea (adult) (pediatric); I65.23 Occlusion and stenosis of bilateral carotid arteries; Z95.0 Presence of cardiac pacemaker; Z95.2 Presence of prosthetic heart valve ==